=== PATIENT | male | born 1980 | race Caucasian/White ===

== ENCOUNTER 2019-07-25 00:39 | Emergency (ER) | payer SELFPAY ==
[2019-07-25] VITALS (7 sets, daily range): BP systolic 161–169; BP diastolic 10–81; PULSE 68–78; RESP 15–20; TEMP 36.6; O2SAT 96–98; BMI 49.1
--- NOTE | 2019-07-25 00:51 | XRR_ITS ---
PROCEDURE INFORMATION: Exam: XR Chest, 1 View Exam date and time: 07/25/2019 1:47 AM Age: 38 years old Clinical indication: Dyspnea; Additional info: SOB TECHNIQUE: Imaging protocol: XR of the chest Views: 1 view. COMPARISON: No relevant prior studies available. FINDINGS: Lungs: Unremarkable. No consolidation. Pleural space: Unremarkable. No pleural effusion. No pneumothorax. Heart/Mediastinum: Unremarkable. No cardiomegaly. Bones/joints: Unremarkable. XR/XR chest 1V portable [id number] IMPRESSION: No acute findings.
--- NOTE | 2019-07-25 00:51 | ECG_ITS ---
Measurements Intervals [place] Rate: 68 P: 36 RI: 170 QRS: -8 QRSD: 125 T: 40 QT: 390 QTc: 417 SINUS RHYTHM MODERATE INTRAVENTRICULAR CONDUCTION DELAY [110+ ms QRS DURATION] No previous ECG available for comparison Electronically Signed On 07-25-2019 8:25:35 CDT by Yudith Pina M.D. [id number]
--- NOTE | 2019-07-25 00:52 | W.ED.GENADLT ---
Documented by User: PAVEL Weeks 07/25/19 00:57 HPI - General Adult General: Chief complaint: Chest Pain Stated complaint: chest/abd pains/SOB Time Seen by Provider: 07/25/19 00:48 History of Present Illness: HPI narrative: Patient states that about 11:00 tonight he had an episode of pain is upper abdomen radiating to his left chest said he felt like he is holding his left arm up in the air went over to his left shoulder lasted from 30 to 45 minutes he said he broke out in cold sweat did have some shortness of breath that time. I said he is felt fine for the last hours so got right up here from [place] and he feels fine right now. Patient has history of hypertension gout and high cholesterol. MD complaint: Chest pain Onset (ago): hour(s) Location: chest Severity: mild and similar to prior episodes (Has had gas in the past that felt the same) Quality: stabbing and sharp Pain Consistency: now resolved Relieving factors: none Exacerbating factors: none Associated symptoms: Reports chest pain, diaphoresis, dyspnea and short of breath; Deny cough, headache(s), rash, palpitations or vomiting Review of Systems Const: Reports: diaphoresis Eyes: Denies: change in vision or blurry vision ENMT: Denies: throat pain or nasal congestion Card: Reports: chest pain; Denies: palpitations Resp: Reports: shortness of breath; Denies: productive cough or non-productive cough GI: Denies: vomiting : Denies: difficulty urinating Musc: Denies: extremity pain Skin/Breast: Denies: rash Neuro: Denies: headache Psych: Denies: anxiety or depression Tristan/Lymph: Denies: easy bruising PFSH ED PFSH: Social History Smoking and tobacco status: never smoked Physical Exam Const: COMMON NORMALS: no apparent distress, average body habitus and oriented x3 HENMT: COMMON NORMALS: normocephalic HEAD & SCALP: normal to inspection and normocephalic FACE & SINUS: normal facial exam Eye: COMMON NORMALS: conjunctivae normal GENERAL EYE: normal appearance of both eyes CONJUNCTIVA: Yes conjunctivae normal Neck/C-Spine: COMMON NORMALS: no JVD Chest: COMMONS NORMALS: inspection of chest normal Resp: COMMON NORMALS: normal respiratory effort and clear to auscultation bilaterally AUSCULTATION: clear to auscultation bilaterally Cardio: COMMON NORMALS: no JVD, regular rate and regular rhythm RATE: regular rate RHYTHM: regular rhythm GI: COMMON NORMALS: normal to inspection, nondistended, normoactive bowel sounds Extremity: COMMON NORMALS: normal to inspection and full ROM Neuro: COMMON NORMALS: oriented x3 Course Vital Signs: Vital signs: Vital Signs Temperature 97.8 F 07/25/19 00:51 Pulse Rate 73 07/25/19 03:28 Respiratory Rate 20 H 07/25/19 03:28 Blood Pressure 161/81 07/25/19 02:30 Pulse Oximetry 97 07/25/19 03:28 [facility] - General Adult Lab Data: Labs: Lab Results 07/25/19 07/25/19 07/25/19 Range/Units 00:58 00:58 00:58 WBC 13.2 H (4.0-10.0) 10^3/ uL RBC 5.30 (4.1-5.3) 10^6/u L Hgb 15.2 (11.7-16.6) g/dL Hct 48.0 (42.0-52.0) % MCV 90.6 (80-94) fL MCH 28.7 (28.0-34.0) pg MCHC 31.7 (30.0-36.0) g/dL RDW 12.6 (12.1-15.1) % Plt Count 278 (130-400) 10^3/c mm MPV 11.2 H (7.4-10.4) fL Neut % (Auto) 76.5 % Lymph % (Auto) 13.3 % [place] % (Auto) 8.7 % Eos % (Auto) 0.8 % Baso % (Auto) 0.4 % Neut # (Auto) 10.1 H (1.8-7.7) 10^3/u L Lymph # (Auto) 1.8 (0.8-4.8) 10^3/u L [place] # (Auto) 1.2 H (0.2-0.9) 10^3/u L Eos # (Auto) 0.1 (0.0-0.8) 10^3/u L Baso # (Auto) 0.1 (0.0-0.1) 10^3/u L Nucleated RBC % (a uto) 0 % Nucleated RBCs # 0.0 /100WBC PT (10.5-13.3) SECO NDS INR (0.8-1.2) Sodium 139 (136-145) mmol/L Potassium 4.1 (3.5-5.1) mmol/L Chloride 98 (98-107) mmol/L Carbon Dioxide 28 (22-29) mmol/L Anion Gap 17.1 (5-19) BUN 12 (6-20) mg/dL Creatinine 0.9 (0.7-1.2) mg/dL GFR Calculation 95.0 (90-130) mL/min Glucose 148 H (65-115) mg/dL Calculated Osmolal ity 287 (285-295) mOsm/k g Calcium 9.9 (8.5-10.5) mg/dL Total Bilirubin 0.7 (0.15-1.2) mg/dL AST 105 H (0-40) U/L ALT 70 H (0-41) U/L Alkaline Phosphata se 108 (40-130) IU/L Troponin T Baselin e 7 (0-15) ng/mL Troponin T 120 Min [place] (0-15) ng/mL Delta Troponin T (0-10) ABS# Total Protein 6.9 (6.6-8.7) g/dL Albumin 4.4 (3.5-5.2) g/dL Globulin 2.5 (1.3-4.6) g/dL Hepatitis A IgM Ab (Nonreactive) Hep Bs Antigen (Nonreactive) Hep B Core IgM Ab (Nonreactive) Hepatitis C Antibo dy (Nonreactive) 07/25/19 07/25/19 07/25/19 Range/Units 00:58 00:58 02:48 WBC (4.0-10.0) 10^3/ uL RBC (4.1-5.3) 10^6/u L Hgb (11.7-16.6) g/dL Hct (42.0-52.0) % MCV (80-94) fL MCH (28.0-34.0) pg MCHC (30.0-36.0) g/dL RDW (12.1-15.1) % Plt Count (130-400) 10^3/c mm MPV (7.4-10.4) fL Neut % (Auto) % Lymph % (Auto) % [place] % (Auto) % Eos % (Auto) % Baso % (Auto) % Neut # (Auto) (1.8-7.7) 10^3/u L Lymph # (Auto) (0.8-4.8) 10^3/u L [place] # (Auto) (0.2-0.9) 10^3/u L Eos # (Auto) (0.0-0.8) 10^3/u L Baso # (Auto) (0.0-0.1) 10^3/u L Nucleated RBC % (a uto) % Nucleated RBCs # /100WBC PT 13.60 H (10.5-13.3) SECO NDS INR 1.01 (0.8-1.2) Sodium (136-145) mmol/L Potassium (3.5-5.1) mmol/L Chloride (98-107) mmol/L Carbon Dioxide (22-29) mmol/L Anion Gap (5-19) BUN (6-20) mg/dL Creatinine (0.7-1.2) mg/dL GFR Calculation (90-130) mL/min Glucose (65-115) mg/dL Calculated Osmolal ity (285-295) mOsm/k g Calcium (8.5-10.5) mg/dL Total Bilirubin (0.15-1.2) mg/dL AST (0-40) U/L ALT (0-41) U/L Alkaline Phosphata se (40-130) IU/L Troponin T Baselin e (0-15) ng/mL Troponin T 120 Min [place] 6.00 (0-15) ng/mL Delta Troponin T -1.00 L (0-10) ABS# Total Protein (6.6-8.7) g/dL Albumin (3.5-5.2) g/dL Globulin (1.3-4.6) g/dL Hepatitis A IgM Ab Non-reactive (Nonreactive) Hep Bs Antigen Non-reactive (Nonreactive) Hep B Core IgM Ab Non-reactive (Nonreactive) Hepatitis C Antibo dy Non-reactive (Nonreactive) EKG Data^: EKG 1: EKG interpretation date: 03/29/20 EKG interpretation time: 00:56 Interpretation: Normal sinus rhythm ventricular rate is 60 bpm OH interval 170 ms QRS duration 125 ms Computer generated interpretation: Chest X-Ray 07/25/19 00:51 IMPRESSION: No acute findings. Gallbladder Ultrasound 07/25/19 02:02 IMPRESSION: Cholelithiasis with gallbladder wall thickening, possible cholecystitis. Negative sonographic Wilkins sign. Discharge Plan Discharge Patient Disposition: Home, Self-Care Clinical Impression: Biliary colic Chest pain Qualifiers: Chest pain type: unspecified Qualified Code(s): R07.9 - Chest pain, unspecified Condition: Stable Discharge Orders: Discharge Order (Routine); Ordered 07/25/19 Ordered By: Elpidio Abebe Referrals: Scott Lindo DO [Family Provider] - 4-7 days Discharge Diet: Advance as tolerated Discharge Activity: Increase activity as tolerated Patient Instructions: Chest Pain (ED), Biliary Colic (ED) Activity Restrictions/Additional Instructions: Return for return of chest or abdominal pain, fever greater than 100, vomiting liquids or medications, shortness of breath, other concerning symptoms. Avoiding fatty or fried foods may help. Discharge Date/Time: 07/25/19 03:22 Coding Level of Care Code ED Delicatessen Clerk for Chg Fwd Exam Comprehensive Documented by User: Elpidio Abebe DO 07/25/19 03:38 HPI - General Adult General: Chief complaint: Chest Pain Stated complaint: chest/abd pains/SOB Time Seen by Provider: 07/25/19 00:48 PFSH ED PFSH: Social History Smoking and tobacco status: never smoked Course Vital Signs: Vital signs: Vital Signs Temperature 97.8 F 07/25/19 00:51 Pulse Rate 73 07/25/19 03:28 Respiratory Rate 20 H 07/25/19 03:28 Blood Pressure 161/81 07/25/19 02:30 Pulse Oximetry 97 07/25/19 03:28 MDM - General Adult MDM Narrative: Medical decision making narrative: 38-year-old male checked out to me by PAVEL Vásquez. His complaint was chest pain that lasted about 45 minutes following eating, that is now resolved. His EKG did not show acute ST changes. His troponin did not change at 2 hours. His gallbladder ultrasound shows 2 large stones in the gallbladder. No ductal dilatation. His wall, is within normal range, but a higher normal. His pain is consistent with biliary colic. With resolution of his pain, and his nontender status now, he will be allowed home. Lab Data: Labs: Lab Results 07/25/19 07/25/19 07/25/19 Range/Units 00:58 00:58 00:58 WBC 13.2 H (4.0-10.0) 10^3/ uL RBC 5.30 (4.1-5.3) 10^6/u L Hgb 15.2 (11.7-16.6) g/dL Hct 48.0 (42.0-52.0) % MCV 90.6 (80-94) fL MCH 28.7 (28.0-34.0) pg MCHC 31.7 (30.0-36.0) g/dL RDW 12.6 (12.1-15.1) % Plt Count 278 (130-400) 10^3/c mm MPV 11.2 H (7.4-10.4) fL Neut % (Auto) 76.5 % Lymph % (Auto) 13.3 % [place] % (Auto) 8.7 % Eos % (Auto) 0.8 % Baso % (Auto) 0.4 % Neut # (Auto) 10.1 H (1.8-7.7) 10^3/u L Lymph # (Auto) 1.8 (0.8-4.8) 10^3/u L [place] # (Auto) 1.2 H (0.2-0.9) 10^3/u L Eos # (Auto) 0.1 (0.0-0.8) 10^3/u L Baso # (Auto) 0.1 (0.0-0.1) 10^3/u L Nucleated RBC % (a uto) 0 % Nucleated RBCs # 0.0 /100WBC PT (10.5-13.3) SECO NDS INR (0.8-1.2) Sodium 139 (136-145) mmol/L Potassium 4.1 (3.5-5.1) mmol/L Chloride 98 (98-107) mmol/L Carbon Dioxide 28 (22-29) mmol/L Anion Gap 17.1 (5-19) BUN 12 (6-20) mg/dL Creatinine 0.9 (0.7-1.2) mg/dL GFR Calculation 95.0 (90-130) mL/min Glucose 148 H (65-115) mg/dL Calculated Osmolal ity 287 (285-295) mOsm/k g Calcium 9.9 (8.5-10.5) mg/dL Total Bilirubin 0.7 (0.15-1.2) mg/dL AST 105 H (0-40) U/L ALT 70 H (0-41) U/L Alkaline Phosphata se 108 (40-130) IU/L Troponin T Baselin e 7 (0-15) ng/mL Troponin T 120 Min [place] (0-15) ng/mL Delta Troponin T (0-10) ABS# Total Protein 6.9 (6.6-8.7) g/dL Albumin 4.4 (3.5-5.2) g/dL Globulin 2.5 (1.3-4.6) g/dL Hepatitis A IgM Ab (Nonreactive) Hep Bs Antigen (Nonreactive) Hep B Core IgM Ab (Nonreactive) Hepatitis C Antibo dy (Nonreactive) 07/25/19 07/25/19 07/25/19 Range/Units 00:58 00:58 02:48 WBC (4.0-10.0) 10^3/ uL RBC (4.1-5.3) 10^6/u L Hgb (11.7-16.6) g/dL Hct (42.0-52.0) % MCV (80-94) fL MCH (28.0-34.0) pg MCHC (30.0-36.0) g/dL RDW (12.1-15.1) % Plt Count (130-400) 10^3/c mm MPV (7.4-10.4) fL Neut % (Auto) % Lymph % (Auto) % [place] % (Auto) % Eos % (Auto) % Baso % (Auto) % Neut # (Auto) (1.8-7.7) 10^3/u L Lymph # (Auto) (0.8-4.8) 10^3/u L [place] # (Auto) (0.2-0.9) 10^3/u L Eos # (Auto) (0.0-0.8) 10^3/u L Baso # (Auto) (0.0-0.1) 10^3/u L Nucleated RBC % (a uto) % Nucleated RBCs # /100WBC PT 13.60 H (10.5-13.3) SECO NDS INR 1.01 (0.8-1.2) Sodium (136-145) mmol/L Potassium (3.5-5.1) mmol/L Chloride (98-107) mmol/L Carbon Dioxide (22-29) mmol/L Anion Gap (5-19) BUN (6-20) mg/dL Creatinine (0.7-1.2) mg/dL GFR Calculation (90-130) mL/min Glucose (65-115) mg/dL Calculated Osmolal ity (285-295) mOsm/k g Calcium (8.5-10.5) mg/dL Total Bilirubin (0.15-1.2) mg/dL AST (0-40) U/L ALT (0-41) U/L Alkaline Phosphata se (40-130) IU/L Troponin T Baselin e (0-15) ng/mL Troponin T 120 Min [place] 6.00 (0-15) ng/mL Delta Troponin T -1.00 L (0-10) ABS# Total Protein (6.6-8.7) g/dL Albumin (3.5-5.2) g/dL Globulin (1.3-4.6) g/dL Hepatitis A IgM Ab Non-reactive (Nonreactive) Hep Bs Antigen Non-reactive (Nonreactive) Hep B Core IgM Ab Non-reactive (Nonreactive) Hepatitis C Antibo dy Non-reactive (Nonreactive) EKG Data^: EKG 1: Computer generated interpretation: Chest X-Ray 07/25/19 00:51 IMPRESSION: No acute findings. Gallbladder Ultrasound 07/25/19 02:02
[2019-07-25 01:23] LABS: Basophils # 0.1 10^3/uL (0.0-0.1); Basophils % 0.4 %; Eosinophils # 0.1 10^3/uL (0.0-0.8); Eosinophils % 0.8 %; Hemoglobin 15.2 g/dL (11.7-16.6); Lymphocytes # 1.8 10^3/uL (0.8-4.8); Lymphocytes % 13.3 %; Mean Corpuscular HGB Conc 31.7 g/dL (30.0-36.0); Mean Corpuscular Hemoglobin 28.7 pg (28.0-34.0); Mean Corpuscular Volume 90.6 fL (80-94); Mean Platelet Volume 11.2 fL (7.4-10.4); Monocytes # 1.2 10^3/uL (0.2-0.9); Monocytes % 8.7 %; Neutrophils # 10.1 10^3/uL (1.8-7.7); Neutrophils % 76.5 %; Nucleated Red Blood Cells % 0 %; Platelet Count 278 10^3/cmm (130-400); Red Cell Distribution Width 12.6 % (12.1-15.1); White Blood Count 13.2 10^3/uL (4.0-10.0)
[2019-07-25 01:36] LABS: INR 1.01 (0.8-1.2)
[2019-07-25 01:45] LABS: Alanine Aminotransferase 70 U/L (0-41); Albumin Level 4.4 g/dL (3.5-5.2); Alkaline Phosphatase 108 IU/L (40-130); Anion Gap 17.1 (5-19); Aspartate Amino Transferase 105 U/L (0-40); Blood Urea Nitrogen 12 mg/dL (6-20); Calcium 9.9 mg/dL (8.5-10.5); Carbon Dioxide 28 mmol/L (22-29); Chloride 98 mmol/L (98-107); Globulin 2.5 g/dL (1.3-4.6); Glucose 148 mg/dL (65-115); Osmolality Calculated 287 mOsm/kg (285-295); Potassium 4.1 mmol/L (3.5-5.1); Sodium 139 mmol/L (136-145); Total Bilirubin 0.7 mg/dL (0.15-1.2); Total Protein 6.9 g/dL (6.6-8.7)
[2019-07-25 02:00] LABS: Troponin(5th) Baseline 7 ng/mL (0-15)
--- NOTE | 2019-07-25 02:02 | USR_ITS ---
PROCEDURE INFORMATION: Exam: US Abdomen Limited, Right Upper Quadrant Exam date and time: 07/25/2019 2:52 AM Age: 38 years old Clinical indication: Abdominal pain; Acute; Additional info: Ruq pain TECHNIQUE: Imaging protocol: Real-time ultrasound of the abdomen with image documentation. Examination was focused on the right upper quadrant. COMPARISON: CT abdomen pelvis w con* [id number] 2019-03-30 08:03 FINDINGS: Liver: Hepatic steatosis. Gallbladder: Cholelithiasis with gallbladder wall thickening measuring 6 mm. Common bile duct: Common biliary duct measures 5 mm. Pancreas: Visualized pancreas is unremarkable. Right kidney: Normal. No mass. No hydronephrosis. US/US gall bladder [id number] IMPRESSION: Cholelithiasis with gallbladder wall thickening, possible cholecystitis. Negative sonographic Wilkins sign.
[2019-07-25 02:29] LABS: Hepatitis A Antibody IgM. Non-Reactive (Nonreactive); Hepatitis B Core IgM Non-Reactive (Nonreactive); Hepatitis B Surface Antigen. Non-Reactive (Nonreactive); Hepatitis C Virus Antibody Non-Reactive (Nonreactive)
== END 2019-07-25 03:22 | disposition home or self-care (01) ==
PROVIDERS: Emergency Provider Nurse Practitioner Family; Family Provider Electrodiagnostic Medicine
DX: K80.70 Calculus of gallbladder and bile duct without cholecystitis without obstruction (principal); R07.9 Chest pain, unspecified; I10 Essential (primary) hypertension
CPT/HCPCS: 12345; 71045; 76705; 80053; 80074; 84484; 85025; 85610; 93005; 99282; 99283

== ENCOUNTER 2022-08-23 21:03 | Observation (INO) | payer MEDICAID, SELFPAY ==
--- NOTE | 2022-08-23 21:09 | XRR_ITS ---
PROCEDURE INFORMATION: Exam: XR Chest Exam date and time: 08/23/2022 9:47 PM Age: 41 years old Clinical indication: Pain; Other: Upper abd; Additional info: Abd pain TECHNIQUE: Imaging protocol: Radiologic exam of the chest. Views: 1 view. COMPARISON: CR XR chest 1V portable [id number] 07/25/2019 1:36 AM FINDINGS: Lungs: Unremarkable. No consolidation. Pleural spaces: Unremarkable. No pleural effusion. No pneumothorax. Heart/Mediastinum: Unremarkable. No cardiomegaly. Bones/joints: Unremarkable. XR/XR chest 1V portable [id number] IMPRESSION: No acute findings. Stable appearance of the chest compared with 07/25/2019.
--- NOTE | 2022-08-23 21:09 | USR_ITS ---
PROCEDURE INFORMATION: Exam: US Abdomen, Limited; Right Upper Quadrant Exam date and time: 08/23/2022 9:21 PM Age: 41 years old Clinical indication: Abdominal pain; Acute; Additional info: Ruq pain TECHNIQUE: Imaging protocol: Real time ultrasound of the abdomen with image documentation. Limited exam focused on the right upper quadrant. COMPARISON: US gall bladder [id number] 07/25/2019 2:47 AM FINDINGS: Liver: There is diffuse hyperechogenicity of the hepatic parenchyma compatible with fatty infiltration. The liver is prominent measuring approximately 23.7 cm craniocaudal dimension. Gallbladder: Hyperechoic foci and intermediate echogenicity is seen intraluminally within the gallbladder compatible gallstones and gallbladder sludge. There is gallbladder thickening measuring 5.2 mm. A positive sonographic Wilkins sign is elicited. These findings suggest gallstone cholecystitis. Biliary ducts: Normal. No stones. No dilation. Pancreas: Visualized pancreas is unremarkable. Right kidney: Normal. No mass. No hydronephrosis. US/US gall bladder [id number] IMPRESSION: 1. Gallstones, gallbladder sludge, gallbladder wall thickening and positive sonographic Wilkins sign suggests gallstone cholecystitis. 2. Hepatomegaly and fatty infiltration of the liver.
[2022-08-23 21:11] VITALS: BP 182/97; PULSE 57; RESP 16; TEMP 36.8; O2SAT 97; BMI 54.1
--- NOTE | 2022-08-23 21:12 | ED_ITS ---
HPI - Abdominal Pain General: Chief Complaint: Abdominal Pain Stated Complaint: ABD PAIN Time Seen by Provider: 08/23/22 21:03 Source: patient and EMS Mode of arrival: EMS Limitations: no limitations History of Present Illness: 41-year-old male who states that he started having some epigastric pain at 5 PM. States pain is been a sharp pain that is currently a 6 out of 10 he states it is much worse with palpation has had some nausea denies any vomiting he has had issues with his gallbladder past no abdominal surgeries states she did have some radiation into his chest denies any chest pain currently. No fevers. Associated Symptoms: Reports nausea; Denies chills, diarrhea, dysuria, fever(s) and vomiting Review of Systems Const: Denies: fever(s), chills, body aches or change in appetite Eyes: Denies: eye discomfort ENMT: Denies: throat pain or dental pain Card: Reports: chest pain Resp: Denies: dyspnea GI: Reports: abdominal pain and nausea; Denies: vomiting or diarrhea : Denies: dysuria Musc: Denies: neck pain or back pain Skin/Breast: Denies: rash Neuro: Denies: headache(s) PFS ED PFSH: Medical History (Updated 08/23/22 @ 23:08 by Black Sprague MD) No pertinent past medical history Social History Smoking and tobacco status: never smoked Physical Exam Const: COMMON NORMALS: no acute distress, patient oriented x3 and healthy appearing HENMT: COMMON NORMALS: normocephalic and atraumatic HEAD & SCALP: normocephalic and atraumatic Eye: COMMON NORMALS: Equal, round and reactive pupils present and EOMs intact bilaterally PUPIL: Yes Equal, round and reactive pupils present Neck/C-Spine: COMMON NORMALS: full ROM and supple Chest: COMMONS NORMALS: normal inspection of the chest and normal palpation of entire chest wall Resp: COMMON NORMALS: normal respiratory effort, No retractions, No use of accessory muscles and clear to auscultation bilaterally AUSCULTATION: clear to auscultation bilaterally Cardio: COMMON NORMALS: regular rate, regular rhythm and No murmurs present (Cardio) RATE: regular rate RHYTHM: regular rhythm GI: COMMON NORMALS: Normal to inspection, nondistended, normoactive bowel sounds present, Soft to palpation and no masses PALPATION: Yes Soft to palpation OTHER: epigastric tenderness Extremity: COMMON NORMALS: normal to inspection and full ROM Neuro: COMMON NORMALS: patient oriented x3, moves all extremities and no focal motor deficits Psych: COMMON NORMALS: mental status grossly normal, Normal thought process present and cooperative THOUGHT PROCESS: Normal thought process present Skin: COMMON NORMALS: no rashes or lesions noted and no wounds GENERAL SKIN EXAM: no rashes or lesions noted Course Vital Signs: Vital signs: Vital Signs Temperature 98.2 F 08/23/22 21:11 Pulse Rate 57 L 08/23/22 21:11 Respiratory Rate 18 08/23/22 21:45 Blood Pressure 182/97 08/23/22 21:11 Pulse Oximetry 97 08/23/22 21:45 Oxygen Delivery Me thod Room Air 08/23/22 21:11 MDM - Abdominal Pain Medical Decision Making Patient presents here with abdominal pain ultrasound does show cholecystitis his pain has improved here we will start him on antibiotic spoke to surgeon and will admit at this time. Lab Data 08/23/22 21:42 08/23/22 22:30 Labs/Radiology: Radiology Impressions Chest X-Ray 08/23/22 21:09 IMPRESSION: No acute findings. Stable appearance of the chest compared with 07/25/2019. Gallbladder Ultrasound 08/23/22 21:09 IMPRESSION: 1. Gallstones, gallbladder sludge, gallbladder wall thickening and positive sonographic Wilkins sign suggests gallstone cholecystitis. 2. Hepatomegaly and fatty infiltration of the liver. Laboratory Results WBC 12.0 10^3/uL (4.0-10.0) H 08/23/22 21:42 RBC 4.74 10^6/uL (4.1-5.3) 08/23/22 21:42 Hgb 13.6 g/dL (11.7-16.6) 08/23/22 21:42 Hct 42.8 % (42.0-52.0) 08/23/22 21:42 MCV 90.3 fl (80-94) 08/23/22 21:42 MCH 28.7 pg (28.0-34.0) 08/23/22 21:42 MCHC 31.8 g/dL (30.0-36.0) 08/23/22 21:42 RDW 12.3 % (12.1-15.1) 08/23/22 21:42 Plt Count 245 10^3/cmm (130-400) 08/23/22 21:42 MPV 12.1 fL (7.4-10.4) H 08/23/22 21:42 Neut % (Auto) 88.6 % 08/23/22 21:42 Lymph % (Auto) 6.9 % 08/23/22 21:42 Gregory % (Auto) 3.7 % 08/23/22 21:42 Eos % (Auto) 0.1 % 08/23/22 21:42 Baso % (Auto) 0.4 % 08/23/22 21:42 Neut # (Auto) 10.64 10^3/uL (1.8-7.7) H 08/23/22 21:42 Lymph # (Auto) 0.8 10^3/uL (0.8-4.8) 08/23/22 21:42 Gregory # (Auto) 0.5 10^3/uL (0.2-0.9) 08/23/22 21:42 Eos # (Auto) 0.0 10^3/uL (0.0-0.8) 08/23/22 21:42 Baso # (Auto) 0.1 10^3/uL (0.0-0.1) 08/23/22 21:42 Nucleated RBC % (auto) 0 % 08/23/22 21:42 Nucleated RBCs # 0.0 /100WBC 08/23/22 21:42 Sodium 139 mmol/L (136-145) 08/23/22 22:30 Potassium 3.2 mmol/L (3.5-5.1) L 08/23/22 22:30 Chloride 100 mmol/L (98-107) 08/23/22 22:30 Carbon Dioxide 24 mmol/L (22-29) 08/23/22 22:30 Anion Gap 18.2 (5-19) 08/23/22 22:30 BUN 6 mg/dL (6-20) 08/23/22 22:30 Creatinine 0.7 mg/dL (0.7-1.2) 08/23/22 22:30 GFR Calculation 124.9 mL/min (90-130) 08/23/22 22:30 Glucose 181 mg/dL (65-115) H 08/23/22 22:30 Calculated Osmolality 290 mOsm/kg (285-295) 08/23/22 22:30 Calcium 9.4 mg/dL (8.5-10.5) 08/23/22 22:30 Total Bilirubin 1.1 mg/dL (0.15-1.2) 08/23/22 22:30 AST 177 U/L (0-40) H 08/23/22 22:30 ALT 114 U/L (0-41) H 08/23/22 22:30 Alkaline Phosphatase 142 U/L (40-130) H 08/23/22 22:30 Total Protein 7.1 g/dL (6.6-8.7) 08/23/22 22: Albumin 3.8 g/dL (3.5-5.2) 08/23/22 22: Globulin 3.3 g/dL (1.3-4.6) 08/23/22: Lipase 26 U/L (13-60) 08/23/22 22:30 Discharge Plan Discharge Patient Disposition: Admitted As Inpatient Clinical Impression: Cholecystitis Condition: Stable Coding Level of Care Code ED Director Patient Financial Services for Rizwan Jules
--- NOTE | 2022-08-23 21:18 | ECG_ITS ---
[facility] Test Date: 2022-08-23 Pat Name: Louis Reeder Department: Room: Gender: Male [employer]ing [employer]: : 1980 Requested By: Black Sprague Order Number: [id number] Ruth MD: Esmer Mejía M.D. Measurements Intervals [place] Rate: 55 P: 41 AK: 173 QRS: -29 QRSD: 126 T: 24 QT: 425 QTc: 407 Interpretive Statements SINUS BRADYCARDIA BORDERLINE LEFT AXIS DEVIATION [QRS AXIS < -20] MODERATE INTRAVENTRICULAR CONDUCTION DELAY [110+ ms QRS DURATION] Compared to ECG 07/25/2019 00:59:44 Sinus rhythm no longer present Electronically Signed On 08-24-2022 16:36:53 CDT by Esmer Mejía M.D. [id number]
[2022-08-23] MEDS: ondansetron 2 mg/ML SDV 2 mL 4 MG IVP (21:44)
[2022-08-23 21:45] VITALS: RESP 18; O2SAT 97
[2022-08-23] MEDS: morphine 4 mg/mL SDV 1 mL IVP (21:45)
[2022-08-23 22:01] LABS: Basophils # 0.1 10^3/uL (0.0-0.1); Basophils % 0.4 %; Eosinophils % 0.1 %; Hematocrit 42.8 % (42.0-52.0); Hemoglobin 13.6 g/dL (11.7-16.6); Lymphocytes # 0.8 10^3/uL (0.8-4.8); Lymphocytes % 6.9 %; Mean Corpuscular HGB Conc 31.8 g/dL (30.0-36.0); Mean Corpuscular Hemoglobin 28.7 pg (28.0-34.0); Mean Corpuscular Volume 90.3 fl (80-94); Mean Platelet Volume 12.1 fL (7.4-10.4); Monocytes # 0.5 10^3/uL (0.2-0.9); Monocytes % 3.7 %; Neutrophils # 10.64 10^3/uL (1.8-7.7); Neutrophils % 88.6 %; Nucleated Red Blood Cells % 0 %; Platelet Count 245 10^3/cmm (130-400); Red Blood Count 4.74 10^6/uL (4.1-5.3); Red Cell Distribution Width 12.3 % (12.1-15.1)
[2022-08-23] MEDS: levofloxacin-dextrose 5 % 750 MG/150 ML PREMIX 100 MG IV (22:31)
[2022-08-23 22:53] LABS: Alanine Aminotransferase 114 U/L (0-41); Albumin Level 3.8 g/dL (3.5-5.2); Alkaline Phosphatase 142 U/L (40-130); Anion Gap 18.2 (5-19); Aspartate Amino Transferase 177 U/L (0-40); Blood Urea Nitrogen 6 mg/dL (6-20); Calcium 9.4 mg/dL (8.5-10.5); Carbon Dioxide 24 mmol/L (22-29); Chloride 100 mmol/L (98-107); Globulin 3.3 g/dL (1.3-4.6); Glomerular Filtration Rate 124.9 mL/min (90-130); Glucose 181 mg/dL (65-115); Lipase 26 U/L (13-60); Osmolality Calculated 290 mOsm/kg (285-295); Potassium 3.2 mmol/L (3.5-5.1); Sodium 139 mmol/L (136-145); Total Bilirubin 1.1 mg/dL (0.15-1.2); Total Protein 7.1 g/dL (6.6-8.7)
[2022-08-23 23:16] VITALS: BP 166/83; PULSE 72; RESP 15; O2SAT 95
[2022-08-24] VITALS (33 sets, daily range): BP systolic 146–199; BP diastolic 82–117; PULSE 58–94; RESP 12–22; TEMP 36.4–37.1; O2SAT 91–97
[2022-08-24] MEDS: sodium chloride 0.9% 1,000 ML 100 ML IV (00:05)
--- NOTE | 2022-08-24 08:42 | P.HP_ITS ---
Providers/Chief Complaint Admitting Physician: Chavez Frankel MD Chief Complaint: ABD PAIN History of Present Illness Louis Reeder is a 41 year old male presents the emergency room with a several hour history of abdominal pain. The patient had some nausea without vomiting. The patient underwent an ultrasound in the emergency room which was consistent with acute cholecystitis. Patient also had cholelithiasis. The pat eder had a previous episode approximately 2 weeks earlier which woke him up in the middle of the night. The pain was in the right upper quadrant. The patient stated the pain lasted about 45 minutes before he started to feel better. The patient has a diet that consists of fatty foods. Past medical history is consistent with hypertension and gout and morbid obesity Review of Systems General: Reports: 10 or more systems reviewed and unremarkable except in HPI and below Medications/Allergies Allergies Allergy/AdvReac Type Severity Reaction Status Date / Time Penicillins Allergy ADR-Itching Verified 08/23/22 21:16 PFSH Acute PFSH: Medical History No pertinent past medical history Social History Smoking and tobacco status: never smoked Vitals/I&O/Wt Last Vital Signs Temp 98.0 F 08/24/22 04:00 Pulse 58 L 08/24/22 04:00 Resp 16 08/24/22 04:00 BP 159/95 08/24/22 04:00 Pulse Ox 97 08/24/22 04:00 O2 Del Method Room Air 08/24/22 04:00 08/23/22 08/24/22 08/24/22 22:59 06:59 14:59 Intake Total 150 / 150 Balance 150 / 150 Weight last 48 hrs Weight 410 lb Physical Exam Narrative: Generally: No acute distress HEENT is normocephalic atraumatic Neck: Free range of motion and nontender. The patient has no thyromegaly. Lungs: Clear to auscultation and percussion Heart: Is regular rate and rhythm without murmurs. There is no S3 or S4. There is no rubs clicks or JVD noted. Abdomen: Morbidly obese, soft, right upper quadrant tenderness without rebound. There is no masses that I can appreciate. There is no hepatosplenomegaly. There is no costovertebral angle tenderness. There are no hernias that I can appreciate. Extremities: There is no obvious deformities or point tenderness suggestive of a fracture. The patient has good capillary refill in both his hands and feet. There is no clubbing cyanosis or edema. Neurologic: The patient is awake, alert, oriented x3. The patient moves all 4 extremities without difficulty. The patient sensations intact to light touch throughout. Data 08/23/22 21:42 08/23/22 22:30 Attestation for Other Data: I personally reviewed and interpreted the following: (I have reviewed all the patient's labs and ultrasound from this hospitalization) A&P Assessment and plan (1) Cholecystitis: This patient has acute cholecystitis. The patient received a single dose of levofloxacin last night because the patient is allergic to penicillin. We will switch this to ertapenem. The risk and benefits of laparoscopic cholecystectomy been explained to the patient. The patient seems to understand these risk and benefits would like to proceed. (2) Hypertension: will give clonidine PO. Attestations Medical Necessity Statement*: requires surgical intervention Coding Level of Care Code 67634 Diagnoses Cholecystitis K81.9 Hypertension I10
[2022-08-24] MEDS: cloNIDine 0.1 mg Tablet PO ×2 (08:49→21:45)
[2022-08-24] MEDS: D5-NS 0.45% + KCL 20 mEq 20 MEQ/1,000 ML BAG 125 MEQ IV (09:19)
[2022-08-24] MEDS: potassium chloride premix 100 ML 50 MEQ IV (09:25)
[2022-08-24] MEDS: sodium chloride 0.9% 1,000 ML 30 ML IV (11:07)
--- NOTE | 2022-08-24 12:34 | ANES.PREANE2 ---
Pre-Anesthetic Assessment Height/Weight: Height 1.85 m Weight 185.973 kg Temp Pulse Resp BP Pulse Ox O2 Del Method 98.8 F 78 16 177/111 95 Room Air 08/24/22 11:03 08/24/22 11:03 08/24/22 11:03 08/24/22 11:03 08/24/22 11:03 08/24/22 11:03 Preop Diagnosis: acute cholecystitis Operation Date: 08/24/22 11:35 Proposed Procedures p Laparoscopic Cholecystectomy(Not Applicable) - Chavez Frankel MD Familial anesthetic complications: none Was Beta Duncan taken within 24 hours: N/A Was Clonidine taken within 24 hours: N/A Last intake: Intake Last Liquid Date 08/23/22 Last Liquid Time 23:30 Last Solid Date 08/23/22 Last Solid Time 13:00 Social No alcohol and No tobacco Exam alert, oriented x 3, clear to auscultation bilaterally and regular rate & rhythm Airway Submandibular: within normal limits Cervical ROM: within normal limits Mallampati: Class I Dentition: chipped Comments: Comments: Multiple caries and chips CV/HEM Hypertension GI acute abdomen Metabolic Morbid Obesity Anesthetic Plan ASA status: 3 Anesthesia: General Medications/Allergies Allergies Allergy/AdvReac Type Severity Reaction Status Date / Time Penicillins Allergy ADR-Itching Verified 08/23/22 21:16 Current Medications Generic Name Dose Route Start Last Admin Trade Name Freq PRN Reason Stop Dose Admin Clonidine HCl 0.1 mg 08/24/22 08:27 08/24/22 08:49 Clonidine 0.1 Mg Tablet PO 0.1 mg Q4H PRN Administration SYSTOLIC BLOOD PRESSURE Potassium Chloride/Dextrose/Sod Cl 20 meq in 1,000 mls @ 125 mls/hr 08/24/22 08:30 08/24/22 09:19 D5-Ns 0.45% + Kcl 20 Meq IV 125 mls/hr .Q8H KAYA Administration Sodium Chloride 1,000 mls @ 30 mls/hr 08/24/22 11:00 08/24/22 11:07 Sodium Chloride 0.9% IV 08/25/22 10:59 30 mls/hr .Q24H KAYA Administration PFSH Anesthesia Medical History No pertinent past medical history Social History Smoking and tobacco status: never smoked Data Anesthesia 08/23/22 21:42 08/23/22 22:30 Short CBC 08/23/22 Range/Units 21:42 WBC 12.0 H (4.0-10.0) 10^3/uL Hgb 13.6 (11.7-16.6) g/dL Hct 42.8 (42.0-52.0) % MCV 90.3 (80-94) fl Plt Count 245 (130-400) 10^3/cmm Neut % (Auto) 88.6 % Neut # (Auto) 10.64 H (1.8-7.7) 10^3/uL BMP 08/23/22 08/23/22 21:42 22:30 Sodium Cancelled 139 Potassium Cancelled 3.2 L Chloride Cancelled 100 Carbon Dioxide Cancelled 24 BUN Cancelled 6 Creatinine Cancelled 0.7 Glucose Cancelled 181 H Calcium Cancelled 9.4 Liver Function 08/23/22 08/23/22 Range/Units 21:42 22:30 Total Bilirubin Cancelled 1.1 AST Cancelled 177 H ALT Cancelled 114 H Alkaline Phosphatase Cancelled 142 H Albumin Cancelled 3.8 Cardiac Studies: No Data to Display
--- NOTE | 2022-08-24 13:52 | P.OP_ITS ---
Operative Report Date of procedure: August 24, 2022 Pre-op diagnosis: acute cholecystitis Post-op diagnosis: same Procedure done: Laparoscopic cholecystectomy Specimens removed/disposition: Gallbladder Pathology: Gallbladder Surgeon: Chavez Frankel Anesthesia: General Estimated blood loss (mL): 25 Complications: None noted Findings: Thickened, inflamed edematous gallbladder. Cystic duct and cystic artery were clearly identified. Surgicel was left in the gallbladder fossa. Condition: stable Disposition: PACU Brief History: This is a 41-year-old morbidly obese male who presents with signs and symptoms of acute cholecystitis. Patient an ultrasound which was consistent with acute cholecystitis and cholelithiasis. The risk and benefits of laparoscopic cholecystectomy/open cholecystectomy were explained to the patient. The patient seemed understand the risk and benefits and wanted to proceed. Procedure: Procedure in detail: The patient was brought to the operating placed in supine position. After adequate general endotracheal anesthesia, the patient was prepped and draped in usual sterile fashion. Following this a timeout was performed. The patient's identifiers as well as the goals procedure were discussed. Everyone in the room agreed. This patient is morbidly obese but he is also a tall individual because of this I chose to go supraumbilical. A towel clip was placed along the midline just above the umbilicus and another towel clip was placed approximate 3 cm cephalad. An incision was made with a skin knife along the midline. Because of the patient's size I was unable to use the normal 12 mm trocars. I needed to use the extra long trocars. I did attempt to use the normal trocars and was unable to get into the abdomen. Once I got a longer trocars I was able to get into the abdomen the abdomen was insufflated to 15 mmHg. Then 3 standard subcostal ports were placed. One just below the xiphoid another and along the midclavicular line. This was a 5 mm port and then finally a 5 mm port along the anterior axillary line. These were all placed under direct vision. The patient was placed in reverse Trendelenburg and rolled with his left side down his right side up in order for the bowel to fall away from the gallbladder. The patient had multiple thick omental adhesions to the gallbladder. These were bluntly t aken off the gallbladder. This caused some bleeding. I ended up using the Bovie cautery to get the rest of the omentum off of the gallbladder. I had difficulty placing a grasper on the gallbladder because of this and it was not compressible. Because of this I used a needle to decompress the gallbladder. I aspirated approximately 40 to 50 cc worth of bile. This was dark green in color. This helped with the compressibility of the gallbladder somewhat but I still had difficulty keeping the grasper on the gallbladder. This was a theme throughout the case. Because of this I took a Bovie cautery and on the dome of the gallbladder I created a hole and then through this hole I placed the suction student services vice president and suctioned out the remaining bile. This made the gallbladder more pliable. Extensive adhesions were taken down and as I got to the infundibulum of the gallbladder I was still having difficulty to the gallbladder itself because of this I ended up getting a tenaculum this worked extremely well. Is able to dissect out the cystic duct. I get it in multiple different angles. Using a [place] as well as the suction student services vice president I was able to take the adhesions off the bottom of the gallbladder this delineated the cystic artery. Using the Bovie both on the medial and lateral aspect of the gallbladder I was able to get the lower portion of the gallbladder off of the gallbladder fossa this help create the critical view. Now using the larger 10 mm clips the cystic duct was clipped 2 clips more distal and 1 clip closer to the gallbladder. Scissors were then used to amputate the duct. The artery appeared to bifurcate. I inspected this carefully. Both of these tributaries did go directly into the gallbladder because of this they were both clipped and cut now was able to flip the gallbladder up and remove the gallbladder from the gallbladder fossa using the Bovie cautery. There was extensive inflammatory reaction and the gallbladder peeled out relatively easily. More anterior there was more adhesions and the Bovie cautery was used to Bovie this out the surrounding gallbladder fossa and the the gallbladder was free the gallbladder was now placed in an Endobag. I carefully inspected the liver. The Bovie cautery was used for hemostasis. Because there was a slight amount of oozing I placed some Surgicel in this area. The patient's gallbladder was extremely large. It was thickened. I had an enormous amount of difficulty trying to get the gallbladder out of the 12 mm port in the subxiphoid region because of this I extended this incision several centimeters and then used the Bovie cautery to extend the incision through the subcutaneous tissues and the fascia. Once I was able to open the fascia then I was able to pull the gallbladder out in the Endobag. The Endobag was handed off the field. The the remaining ports were removed. The patient's abdomen is allowed to deflate. 0 Vicryl was now used to reapproximate the fascia in the subxiphoid and the umbilical ports. Because these wounds were relatively large I decided to go ahead and staple these wounds closed. A sterile dressing was applied. The patient was allowed to awaken and was taken recovery room in stable condition. Checked in the waiting room. There is no family present.
--- NOTE | 2022-08-24 14:01 | PC.NURSE ---
Pt arrived to PACU, oral airway in place, O2 at 6L/min via simple mask in place. Dressings to abdomen C/D/I.
--- NOTE | 2022-08-24 14:10 | PC.NURSE ---
Pt awake, oral airway removed, pt tolerated well.
[2022-08-24] MEDS: hyDRALAzine 20 mg/mL INJ 1 mL 10 MG IVP (14:25)
--- NOTE | 2022-08-24 14:25 | PC.NURSE ---
Blood pressures elevated, new orders received and administered, will continue to monitor.
[2022-08-24] MEDS: metoprolol tartrate 1 mg/1 mL SDV 5 mL 5 MG IVP (14:30)
--- NOTE | 2022-08-24 14:31 | ANE.PACU2 ---
Inpatient post-anesthesia follow up: Airway intact: Yes Vital signs: Temperature 97.6 F Pulse Rate 75 Respiratory Rate 18 Blood Pressure 196/115 Pulse Oximetry 91 Oxygen Delivery Me thod Room Air Oxygen Flow Rate 6 Fraction of Inspir ed Oxygen Hydration adequate: Yes Nausea and vomiting: No Pain level: 3 Mental status: Baseline
[2022-08-24] MEDS: fentaNYL 50 mcg/mL INJ 2mL IVP (14:35)
[2022-08-24] MEDS: oxyCODONE 5 mg IR Tab/Cap PO (17:19)
[2022-08-24] MEDS: potassium chloride ER 20 mEq Tablet PO (18:45)
[2022-08-24] MEDS: hydroCHLOROthiazide 25 mg Tablet PO (18:45)
[2022-08-24] MEDS: lisinopril 10 mg Tablet PO (18:45)
[2022-08-24] MEDS: morphine 4 mg/mL SDV 1 mL IVP ×2 (18:49→22:56)
[2022-08-24] MEDS: D5-NS 0.45% + KCL 20 mEq 20 MEQ/1,000 ML BAG 50 MEQ IV (21:58)
--- NOTE | 2022-08-24 23:48 | PM.PN ---
Subjective Subjective: Nurse called. The patient's pain medicine is not working. The patient is in pain. The patient is still very hypertensive. Will give an extra dose of lisinopril and give 0.2mg of clonidine now. Will increase the patient's oxycodone to 15 mg PO q 6 hours. Will give a single dose of toradol now. Will stop all IV narcotics. Vitals/I&O/Wt Last Vital Signs Temp 98.3 F 08/24/22 22:41 Pulse 92 08/24/22 23:36 Resp 18 08/24/22 22:56 BP 187/106 08/24/22 23:36 Pulse Ox 93 08/24/22 23:36 O2 Del Method Nasal Cannula 08/24/22 23:36 O2 Flow Rate 2 08/24/22 23:36 08/24/22 08/24/22 08/25/22 14:59 22:59 06:59 Intake Total 2700 / 2700 1700 / 4400 Output Total 25 / 25 Balance 2675 / 2675 1700 / 4375 Weight last 48 hrs Weight 410 lb Data 08/23/22 21:42 08/23/22 22:30 Attestations Medical Necessity Statement*: post op lap choly Coding Level of Care Code Acute Code for Chg Fwd Diagnoses
[2022-08-25] VITALS (22 sets, daily range): BP systolic 107–189; BP diastolic 58–108; PULSE 56–81; RESP 15–20; TEMP 36.3–36.9; O2SAT 89–96
[2022-08-25] MEDS: lisinopril 20 mg Tablet PO ×2 (00:11→17:26)
[2022-08-25] MEDS: FUROsemide 20 mg Tablet PO (00:12)
[2022-08-25] MEDS: potassium chloride ER 20 mEq Tablet 40 MEQ PO ×2 (00:12→06:26)
[2022-08-25] MEDS: cloNIDine 0.1 mg Tablet 0.2 MG PO (00:13)
[2022-08-25] MEDS: pantoprazole DR 40 mg Tablet PO (00:13)
[2022-08-25] MEDS: ketorolac 30 mg/mL INJ 15 MG IVP (00:35)
[2022-08-25 06:09] LABS: Basophils % 0.2 %; Hematocrit 46.9 % (42.0-52.0); Hemoglobin 14.9 g/dL (11.7-16.6); Lymphocytes # 0.9 10^3/uL (0.8-4.8); Lymphocytes % 5.4 %; Mean Corpuscular HGB Conc 31.8 g/dL (30.0-36.0); Mean Corpuscular Hemoglobin 28.6 pg (28.0-34.0); Mean Platelet Volume 11.7 fL (7.4-10.4); Monocytes # 1.1 10^3/uL (0.2-0.9); Monocytes % 6.4 %; Neutrophils # 15.18 10^3/uL (1.8-7.7); Neutrophils % 87.3 %; Nucleated Red Blood Cells % 0 %; Platelet Count 373 10^3/cmm (130-400); Red Blood Count 5.21 10^6/uL (4.1-5.3); White Blood Count 17.4 10^3/uL (4.0-10.0)
[2022-08-25 06:28] LABS: Alanine Aminotransferase 243 U/L (0-41); Albumin Level 3.8 g/dL (3.5-5.2); Alkaline Phosphatase 158 U/L (40-130); Anion Gap 16.7 (5-19); Aspartate Amino Transferase 188 U/L (0-40); Blood Urea Nitrogen 13 mg/dL (6-20); Calcium 9.3 mg/dL (8.5-10.5); Carbon Dioxide 25 mmol/L (22-29); Chloride 99 mmol/L (98-107); Globulin 3.5 g/dL (1.3-4.6); Glomerular Filtration Rate 74.1 mL/min (90-130); Glucose 134 mg/dL (65-115); Osmolality Calculated 286 mOsm/kg (285-295); Potassium 3.7 mmol/L (3.5-5.1); Sodium 137 mmol/L (136-145); Total Bilirubin 1.2 mg/dL (0.15-1.2); Total Protein 7.3 g/dL (6.6-8.7)
[2022-08-25] MEDS: oxyCODONE 5 mg IR Tab/Cap 15 MG PO (10:30)
[2022-08-25] MEDS: lisinopril 10 mg Tablet PO (10:32)
--- NOTE | 2022-08-25 10:46 | MRR_ITS ---
PROCEDURE INFORMATION: Exam: MR Abdomen Without Contrast Exam date and time: 08/25/2022 4:32 PM Age: 41 years old Clinical indication: Abdominal pain; Localized; Left; Prior surgery; Surgery date: Post-operative (0-2 days); Additional info: S/P lap choly. Looking for a bile leak. TECHNIQUE: Imaging protocol: Magnetic resonance imaging of the abdomen without contrast. COMPARISON: 1. CT abdomen pelvis w con* [id number] 03/30/2019 8:03 AM 2. CR (CHEST, ) 08/23/2022 9:47 PM FINDINGS: Liver: Mild loss of signal intensity on the out of phase sequence in the liver parenchyma, consistent with fatty infiltration. Gallbladder and bile ducts: The patient has had an interval cholecystectomy. No biliary ductal dilatation. No retained biliary stones. No obvious bile duct injury, however there is interval development of a small amount of free fluid in the abdomen compared with 08/23/2022, particularly around the liver and spleen. A bile leak cannot be ruled out. Pancreas: The pancreas is unremarkable. No pancreatic ductal dilatation. Spleen: The spleen is unremarkable. Adrenal glands: The right and left adrenal glands are unremarkable. Kidneys and ureters: The right and left kidneys are unremarkable. Stomach and bowel: Visualized stomach and intestines are unremarkable. Intraperitoneal space: No free fluid. Vasculature: No evidence for aortic aneurysm. Lymph nodes: No lymphadenopathy. Bones/joints: Multilevel degenerative changes of varying severity in the visualized spine. Soft tissues: No acute abnormality in the extra-abdominal soft tissues. MR/MR MRCP [id number] IMPRESSION: 1. The patient has had an interval cholecystectomy. No biliary ductal dilatation. No retained biliary stones. No obvious bile duct injury, however there is interval development of a small amount of free fluid in the abdomen compared with 08/23/2022, particularly around the liver and spleen. A bile leak cannot be ruled out. Further evaluation with nuclear medicine hepatobiliary imaging may be obtained if it will change clinical management. 2. Mild fatty infiltration of the visualized liver. Impression. Last. Incidental/nonacute findings are listed in the report.
--- NOTE | 2022-08-25 10:50 | P.PN_ITS ---
Subjective Subjective: The patient had a good deal of abdominal pain yesterday. The patient required adjustment of his pain medications. The patient was also extremely hypertensive yesterday. I adjusted his antihypertensives. The patient states that he feels better this morning. The patient's abdominal pain is graded as a 5/10. The patient is also complaining of some shoulder pain. I am concerned that this may be from diaphragmatic irritation. The patient has been out of bed. The patient has ambulated. Medications: Reviewed: Yes Vitals/I&O/Wt Last Vital Signs Temp 98.4 F 08/25/22 08:18 Pulse 78 08/25/22 08:18 Resp 18 08/25/22 10:30 BP 110/66 08/25/22 08:18 Pulse Ox 92 08/25/22 08:18 O2 Del Method Nasal Cannula 08/25/22 08:18 O2 Flow Rate 2 08/25/22 07:32 08/24/22 08/25/22 08/25/22 22:59 06:59 14:59 Intake Total 1700 / 4400 480 / 4880 480 / 480 Balance 1700 / 4375 480 / 4855 480 / 480 Weight last 48 hrs Weight 410 lb Physical Exam Narrative: Generally: The patient somewhat flushed in the face Lungs: Clear to auscultation and percussion Heart: Regular rate and rhythm Abdomen: Morbidly obese, soft, patient's wounds look good. Patient has normal active bowel sounds. I do not appreciate any significant tenderness outside of normal postoperative tenderness. Data 08/25/22 04:56 08/25/22 04:56 Attestation for Other Data: I personally reviewed and interpreted the following: (I reviewed all the patient's labs over the last 24 to 48 hours) A&P Assessment and plan (1) Cholecystitis: Status post laparoscopic cholecystectomy. we will obtain an MRCP today. We will look for bile leak. add motrin for pain. Continue oxycodone. (2) Hypertension: The patient was started on lisinopril with as needed clonidine. This seems to be controlling the patient's Hypertension. Attestations Medical Necessity Statement*: Patient is recovering from the patient's recovering from laparoscopic cholecystectomy Coding Level of Care Code Acute Code for [facility] Diagnoses Cholecystitis K81.9 Hypertension I10
[2022-08-25] MEDS: hydroCHLOROthiazide 25 mg Tablet PO (12:52)
[2022-08-25] MEDS: ibuprofen 800 mg tablet PO (14:55)
--- NOTE | 2022-08-25 19:02 | P.PN_ITS ---
Subjective Subjective: This patient's been hemodynamically stable. The patient is afebrile. The patient's abdomen is somewhat distended. The patient underwent an MRCP. I spoke with the radiologist. They saw simple fluid around the liver and spleen. They did not see a priyanka bile leak. They do not think that this simple fluid is blood. Vitals/I&O/Wt Last Vital Signs Temp 98.1 F 08/25/22 18:52 Pulse 74 08/25/22 18:52 Resp 18 08/25/22 18:52 BP 153/96 08/25/22 18:52 Pulse Ox 93 08/25/22 18:52 O2 Del Method Nasal Cannula 08/25/22 18:52 O2 Flow Rate 2 08/25/22 08:00 08/25/22 08/25/22 08/25/22 06:59 14:59 22:59 Intake Total 480 / 4880 1010 / 1010 1480 / 2490 Output Total 800 / 800 Balance 480 / 4855 1010 / 1010 680 / 1690 Weight last 48 hrs Weight 410 lb Physical Exam Narrative: Abdomen: Obese, surgical tenderness. Somewhat distended. Decreased bowel sounds. Data 08/25/22 04:56 08/25/22 04:56 A&P Assessment and plan (1) Cholecystitis: I believe with the MRI findings that this patient may have a bile leak. The mo st likely spot is from the cystic duct. We will take the patient to the operating room. I have explained the risk and benefits of this to the patient. I explained to him why I thought he has a cystic duct leak. He seems to understand this and would like to proceed. We will post the patient for immediate abdominal exploration via the laparoscope. Attestations Medical Necessity Statement*: post operative care Coding Level of Care Code Acute Code for Chg Fwd Diagnoses Cholecystitis K81.9
--- NOTE | 2022-08-25 20:13 | PC.NURSE ---
Patient transferred from floor to surgery at approximately 2005
[2022-08-25] MEDS: sodium chloride 0.9% 1,000 ML 30 ML IV (20:14)
--- NOTE | 2022-08-25 20:39 | P.ANESUD_ITS ---
Pre-Anesthetic Update Pre-Anesthetic Assessment: Date of Surgery/Procedure: 08/25/22 Preop Orly gnosis: acute cholecystitis Proposed Procedure: Operation Date: 08/24/22 11:35 Proposed Procedures p Laparoscopic Cholecystectomy(Not Applicable) - Chavez Frankel MD Operation Date: 08/25/22 20:20 Proposed Procedures p Laparoscopy Diagnostic(Not Applicable) - Chavez Frankel MD Any changes to Pre-Anesthetic Assessment?: Yes Changes from Pre-Anesthetic Assessment: Increasing abdominal pain postop, MRI fluid around GB suggestive of bile leak? Last Intake: Intake Last Liquid Date 08/25/22 Last Liquid Time 17:30 Last Solid Date 08/25/22 Last Solid Time 17:30 Labs Last 48hrs: Short CBC 08/23/22 08/25/22 Range/Units 21:42 04:56 WBC 12.0 H 17.4 H (4.0-10.0) 10^3/ uL Hgb 13.6 14.9 (11.7-16.6) g/dL Hct 42.8 46.9 (42.0-52.0) % MCV 90.3 90.0 (80-94) fl Plt Count 245 373 (130-400) 10^3/c mm Neut % (Auto) 88.6 87.3 % Neut # (Auto) 10.64 H 15.18 H (1.8-7.7) 10^3/u L BMP 08/23/22 08/23/22 08/25/22 21:42 22:30 04:56 Sodium Cancelled 139 137 Potassium Cancelled 3.2 L 3.7 Chloride Cancelled 100 99 Carbon Dioxide Cancelled 24 25 BUN Cancelled 6 13 Creatinine Cancelled 0.7 1.1 Glucose Cancelled 181 H 134 H Calcium Cancelled 9.4 9.3 Liver Function 08/23/22 08/23/22 08/25/22 Range/Units 21:42 22:30 04:56 Total Bilirubin Cancelled 1.1 1.2 AST Cancelled 177 H 188 H ALT Cancelled 114 H 243 H Alkaline Phosphata se Cancelled 142 H 158 H Albumin Cancelled 3.8 3.8 Vitals: Temperature 98.4 F 08/25/22 20:09 Temperature Source Temporal Artery S can 08/25/22 20:09 Pulse Rate 74 08/25/22 20:09 Pulse Rhythm Regular 08/25/22 08:00 Pulse Strength 3+ Normal 08/25/22 08:00 Respiratory Rate 16 08/25/22 20:09 Respiratory Effort Spontaneous 08/25/22 10:30 Respiratory Depth Normal 08/25/22 08:00 Respiratory Patter n Normal 08/25/22 10:30 Blood Pressure 167/81 08/25/22 20:09 Blood Pressure Yessy n 109 08/25/22 20:09 Blood Pressure Pos ition Semi Fowlers 08/25/22 05:00 Pulse Oximetry 94 08/25/22 20:09 Oxygen Delivery Me thod Room Air 08/25/22 20:09 Oxygen Flow Rate 2 08/25/22 08:00 Sepsis Recent Feve r Within 48 Hours No 08/23/22 21:11 Sepsis New/Unexpla ined Change in Men faith Status No 08/23/22 21:11 Exam: Pre-Anes Outpt Exam: alert, oriented x 3, clear to auscultation bilate rally and regular rate & rhythm Additional Exam Findings (including area of procedure): No distress. Cardiac Studies: No Data to Display
--- NOTE | 2022-08-25 21:47 | PC.NURSE ---
Pt arrived to PACU, oral airway in place, O2 at 6L/min via simple mask. Dressings to abdomen C/D/I, adrianne drain in place, 100mL drained.
--- NOTE | 2022-08-25 21:49 | PM.OP ---
Operative Report Date of procedure: August 25, 2022 Pre-op diagnosis: Status post laparoscopic cholecystectomy, possible bile leak Post-op diagnosis: same Procedure done: Ligation of cystic duct Pathology: Cystic duct Surgeon: Chavez Frankel Anesthesia: General Estimated blood loss (mL): 25 Complications: None noted Findings: For 100 cc of bile were sucked out of the abdomen. The 2 clips which were placed on the cystic duct have fallen off. The cystic duct was located and stapled with a NEYMAR stapler. Condition: stable Disposition: PACU Brief History: This is a morbidly obese 41-year-old gentleman who presented with signs and symptoms of acute cholecystitis. The patient was taken the operating room and underwent a laparoscopic cholecystectomy. The patient's cystic duct was somewhat thick. Postoperatively the patient had more pain than. He also complained of bilateral shoulder pain. An MRCP showed fluid in the abdomen that was not consistent with a hematoma because of this I thought the patient may have a bile leak. I spoke with the radiologist. They were concerned about a possible bile leak but did not see a common bile duct injury. Because of this, I thought the best thing to do would be to take the patient back to the operating room and see if the clips had fallen off the cystic duct. The risk and benefits of this were explained to the patient the patient seemed understand the risk and benefits and wanted to proceed. Procedure: Procedure in detail: The patient was brought to the operative room placed in supine position. After adequate general endotracheal anesthesia, the patient's abdomen was prepped and draped in usual sterile fashion. Following this a timeout was performed. The patient identifiers as well as the goals procedure were discussed. Everyone in the room agreed. Wilmer were removed from the supraumbilical incision, the xiphoid incision and the midclavicular incision. A 12 mm trocar was placed in the supraumbilical incision. The abdomen was now insufflated to 15 mmHg. The camera was placed through this incision. There was obvious bile in the abdomen. A 12 mm port was placed at the subxiphoid wound and a 5 mm port was placed through the midclavicular line wound. The patient was placed in reverse Trendelenburg and rolled with his left side down his right side up. The bowel was sucked out of the abdomen. Approximate 400 cc were used. Now using a blunt grasper the liver was lifted up. We obtained a 30 degree scope and carefully inspected the gallbladder fossa. The Surgicel was removed and taken out of the abdomen. There was a modest amount of clot in the gallbladder fossa. This was removed with the suction store merchandiser. Using the suction and the suction store merchandiser I was able to locate the cystic duct. The clips had fallen off of the cystic duct. The cystic duct was carefully inspected. I could see the cystic duct actually going into the common bile duct. Because the cystic duct was somewhat broad I decided to use a NEYMAR stapler with a white load. I was able to staple across it. I did not compromise the common bile duct. Upon further inspection, there did not appear to be any more bile leaking. This area was irrigated with copious amounts of normal saline the gallbladder fossa was again inspected. I did not appreciate any more bile leaking. A 14 Serbian Mian drain was placed through the 5 mm port and placed in the gallbladder fossa. Now all 3 ports were removed. The patient's abdomen was allowed to deflate. 0 Vicryl was used to reapproximate the fascia in the supraumbilical and the subxiphoid incisions. These wounds were then irrigated with copious amounts of normal saline and renetta were used to close the skin. Renetta were used to close the skin around the drain tube in the midclavicular line and the drain tube was sutured in the place using 3-0 nylon. The patient was now awakened and taken recovery room in stable condition. There is no family present in the waiting room.
--- NOTE | 2022-08-25 21:52 | P.PCN_ITS ---
PACU note Narrative: VSS, Good respiratory effort, report to ROBOTYPE OPERATOR Exam: awake
--- NOTE | 2022-08-25 21:52 | PM.PACU ---
PACU note Narrative: VSS, Good respiratory effort, report to BASS GUITAR TEACHER Exam: awake
--- NOTE | 2022-08-25 22:02 | PC.NURSE ---
Pt awake, oral airway removed at this time, pt tolerated well.
[2022-08-25 23:27] LABS: Glucose Point of Care 130 mg/dL (70-110)
[2022-08-26] VITALS (14 sets, daily range): BP systolic 127–169; BP diastolic 75–103; PULSE 65–86; RESP 17–20; TEMP 36.2–36.8; O2SAT 90–97
[2022-08-26 06:01] LABS: Basophils % 0.1 %; Hematocrit 46.5 % (42.0-52.0); Hemoglobin 14.8 g/dL (11.7-16.6); Lymphocytes # 1.1 10^3/uL (0.8-4.8); Lymphocytes % 6.7 %; Mean Corpuscular HGB Conc 31.8 g/dL (30.0-36.0); Mean Corpuscular Hemoglobin 28.7 pg (28.0-34.0); Mean Corpuscular Volume 90.1 fl (80-94); Mean Platelet Volume 11.1 fL (7.4-10.4); Monocytes # 0.8 10^3/uL (0.2-0.9); Monocytes % 4.9 %; Neutrophils # 14.02 10^3/uL (1.8-7.7); Neutrophils % 87.8 %; Nucleated Red Blood Cells % 0 %; Platelet Count 323 10^3/cmm (130-400); Red Blood Count 5.16 10^6/uL (4.1-5.3); Red Cell Distribution Width 13.2 % (12.1-15.1)
[2022-08-26 06:13] LABS: Alanine Aminotransferase 167 U/L (0-41); Albumin Level 3.6 g/dL (3.5-5.2); Alkaline Phosphatase 140 U/L (40-130); Anion Gap 16.1 (5-19); Aspartate Amino Transferase 85 U/L (0-40); Blood Urea Nitrogen 19 mg/dL (6-20); Calcium 9.1 mg/dL (8.5-10.5); Carbon Dioxide 24 mmol/L (22-29); Chloride 100 mmol/L (98-107); Globulin 3.4 g/dL (1.3-4.6); Glomerular Filtration Rate 82.8 mL/min (90-130); Glucose 124 mg/dL (65-115); Osmolality Calculated 286 mOsm/kg (285-295); Potassium 4.1 mmol/L (3.5-5.1); Sodium 136 mmol/L (136-145); Total Bilirubin 1.1 mg/dL (0.15-1.2)
--- NOTE | 2022-08-26 07:31 | P.PN_ITS ---
Subjective Subjective: This patient states that he feels better this morning. He has no nausea or vomiting. The patient states that his abdominal pain is less. Medications: Reviewed: Yes Vitals/I&O/Wt Last Vital Signs Temp 98.0 F 08/26/22 05:25 Pulse 86 08/26/22 06:00 Resp 19 H 08/26/22 05:25 BP 134/77 08/26/22 05:25 Pulse Ox 92 08/26/22 05:25 O2 Del Method Nasal Cannula 08/26/22 05:25 O2 Flow Rate 3 08/26/22 05:25 08/25/22 08/26/22 08/26/22 22:59 06:59 14:59 Intake Total 2780 / 3790 Output Total 1625 / 1625 370 / 1994 Balance 1155 / 2165 -370 / 1795 Physical Exam Narrative: Generally: No acute distress Lungs: Clear to auscultation Heart: Regular rate and rhythm without murmurs. There is no S3 or S4. There is no rubs clicks or JVD noted Abdomen: Morbidly obese, soft, nontender (surgical tenderness), the patient's dressings are clean and dry. The patient had 470 cc out of his drain. Extremities: Good capillary refill in both his hands and feet Neurologic: The patient is awake, alert, oriented x3. Data 08/26/22 05:53 08/26/22 05:53 A&P Assessment and plan (1) Cholecystitis: This patient is status. Postoperatively, the patient had a bile leak from the cystic duct. This has been stapled closed. (I took the patient back to the operating room yesterday in order to do this) the patient is doing well now postoperatively. I have asked the patient to get up and walk. The patient is on a regular diet. We will monitor the patient's drain output. will give the patient an extra dose of ertapenem today. I believe can stop the patient's antibiotics if the patient does not require any further surgical intervention. I spoken with Dr. Khan. He has agreed to follow this patient. I spoke with the patient. I explained to him that I was here for just the last week and will be leaving today. He seems to understand. I asked him about questions about the surgery I did yesterday. The patient states that he does not have any. All questions have been addressed. Attestations 2 Medical Necessity Statement*: post op Coding Level of Care Code Acute Code for Chg Fwd Diagnoses Cholecystitis K81.9
[2022-08-26] MEDS: ertapenem 1,000 MG in sodium chloride 0.9% (plus) 100 ML 200 MG IV (09:33)
[2022-08-26] MEDS: lisinopril 20 mg Tablet PO ×2 (09:36→18:40)
[2022-08-26] MEDS: ibuprofen 800 mg tablet PO ×3 (09:36→20:02)
[2022-08-26] MEDS: hydroCHLOROthiazide 25 mg Tablet PO (09:38)
[2022-08-26] MEDS: cloNIDine 0.1 mg Tablet PO (20:02)
[2022-08-27] VITALS (8 sets, daily range): BP systolic 135–174; BP diastolic 82–98; PULSE 60–82; RESP 16–17; TEMP 36.1–36.8; O2SAT 92–96
[2022-08-27 04:41] LABS: Basophils # 0.1 10^3/uL (0.0-0.1); Basophils % 0.4 %; Eosinophils # 0.1 10^3/uL (0.0-0.8); Eosinophils % 0.5 %; Hemoglobin 13.7 g/dL (11.7-16.6); Lymphocytes # 2.4 10^3/uL (0.8-4.8); Lymphocytes % 16.8 %; Mean Corpuscular HGB Conc 31.9 g/dL (30.0-36.0); Mean Corpuscular Hemoglobin 28.8 pg (28.0-34.0); Mean Corpuscular Volume 90.3 fl (80-94); Mean Platelet Volume 10.9 fL (7.4-10.4); Monocytes # 1.3 10^3/uL (0.2-0.9); Monocytes % 9.1 %; Neutrophils # 10.22 10^3/uL (1.8-7.7); Neutrophils % 72.8 %; Nucleated Red Blood Cells % 0 %; Platelet Count 265 10^3/cmm (130-400); Red Blood Count 4.76 10^6/uL (4.1-5.3); Red Cell Distribution Width 13.1 % (12.1-15.1); White Blood Count 14.1 10^3/uL (4.0-10.0)
[2022-08-27 05:07] LABS: Alanine Aminotransferase 112 U/L (0-41); Albumin Level 3.3 g/dL (3.5-5.2); Alkaline Phosphatase 132 U/L (40-130); Blood Urea Nitrogen 26 mg/dL (6-20); Calcium 9.2 mg/dL (8.5-10.5); Carbon Dioxide 25 mmol/L (22-29); Chloride 103 mmol/L (98-107); Globulin 3.3 g/dL (1.3-4.6); Glomerular Filtration Rate 107.1 mL/min (90-130); Glucose 94 mg/dL (65-115); Osmolality Calculated 295 mOsm/kg (285-295); Sodium 140 mmol/L (136-145); Total Bilirubin 0.7 mg/dL (0.15-1.2); Total Protein 6.6 g/dL (6.6-8.7)
[2022-08-27 05:12] LABS: Anion Gap 15.9 (5-19); Potassium 3.9 mmol/L (3.5-5.1)
[2022-08-27 05:13] LABS: Aspartate Amino Transferase 54 U/L (0-40)
[2022-08-27] MEDS: morphine 4 mg/mL SDV 1 mL IVP (05:43)
[2022-08-27] MEDS: hydroCHLOROthiazide 25 mg Tablet PO (07:34)
[2022-08-27] MEDS: ibuprofen 800 mg tablet PO ×2 (07:34→15:00)
[2022-08-27] MEDS: lisinopril 20 mg Tablet PO (07:35)
--- NOTE | 2022-08-27 09:47 | PC.CHAP ---
Pastoral Care Encounter/Spiritual Assessment Type of Contact [] Declined vice president safety visit [] Patient/Family/Request visit [] Outpatient visit [] Follow-up visit [] Physician referral [] Code/Alert [x] Routine visit [] Staff referral [] Actively dying [] Patient sleeping [] Family support [] [] Out of room [] Palliative care [] [] Receiving care in room [] Pre-surgical visit [] Trauma [] Long length of stay [] ICU visit [] Other: Relational/Emotional Strength [x] Patient feels connected with others/family/visitors/staff [] Distress [] Loneliness/isolation [] Abandonment Spirituality of Patient [x] Person of Radha [] Attends Yazdanism of their Ardha [x] Believes in Prayer [] Reads Bible or Latter Day materials [] There are Spiritual issues to be addressed Appliance Adjuster Interventions [x] Prayer [] Active listening [] Non-anxious presence [x] Spiritual/emotional support [] Crisis/trauma care [] Spiritual counseling [] Bereavement support [] Provided bereavement packet [] Provided Bible/devotional materials [] Provided toy/stuffed animal, coloring book to patient or family member [] Provided Communion [] Anointing/[place] [] Salvation [] Completed spiritual assessment [] Other: Impact on Illness or Injury [] Angry [] Fearful [] Anxious [] Often cries [] Exhaustion [] Unable to work [] Unable to attend buddhism [] Unable to walk/stand [] Unable to read [] Unable to drive [] Unable to eat/drink [] Unable to sleep [] Unable to be with family [] Patient intubated [] Other: Summary Time spent with patient 10 min
--- NOTE | 2022-08-27 15:06 | PM.DCS ---
Discharge Providers Date of Admission: 08/24/22 00:00 Date of Discharge: August 27, 2022 Attending Provider at Admission: Chavez Frankel MD Attending Provider at Discharge: Dr. Praveen Khan, Diagnoses at Discharge Discharge Diagnosis (1) Cholecystitis: Status: Acute Reason for Visit Reason for Visit: ABD PAIN Hospital Course Hospital Course Is a very pleasant 41-year-old gentleman who presented to the hospital with acute cholecystitis. He underwent laparoscopic cholecystectomy. Postoperatively he was found to have a bile leak and needed to repeat surgery with stapling of the cystic duct. The drain was serosanguineous upon discharge and his pain was controlled. He was discharged home in good condition with appropriate follow-up. Physical Exam Narrative: General : Patient is well developed , no acute distress, oriented x3 Head : Normal cephalic, a-traumatic. Ears : Pinnae and external canal are normal. Hearing is normal. Eyes : PERRLA, Sclera and injection are normal. No conjunctival discharge. Nose : Mucous membranes are without erythema. Throat : buccal mucosa is normal, gums are without significant recession or hypertrophy. Lungs : Equal chest rise bilaterally, no use of accessory muscles, trachea is midline. Cor : Rate and rhythm are normal. Abdomen : Soft, ND, appropriately tender, no g/r/m Drain serosanguineous Incisions intact without erythema or exudate Extremities : No edema, no cyanosis or clubbing, dorsalis pedis pulses are present bilaterally, non-tender to palpation of calves. Upper extremities are normal bilaterally. Back : non-tender to palpation, no CVA tenderness. Neuro : CN II - XII intact, Upper and lower extremities have equal and full strength Discharge Data Studies Completed and Pending Completed Studies During Hospitalization Category Date Time Status CXRP [XR chest 1V portable [id number]] Stat Exams 08/23/22 21:09 Completed MR MRCP [id number] Stat MRI 08/25/22 10:46 Completed US gall bladder [id number] Stat Ultrasound 08/23/22 21:09 Completed Pending at discharge Category Date Time Status Pathology: Surgical [PTH] Routine Pth 08/24/22 13:42 Received Pathology: Surgical [PTH] Routine Pth 08/25/22 21:41 Received Radiology Impressions Chest X-Ray 08/23/22 21:09 IMPRESSION: No acute findings. Stable appearance of the chest compared with 07/25/2019. Gallbladder Ultrasound 08/23/22 21:09 IMPRESSION: 1. Gallstones, gallbladder sludge, gallbladder wall thickening and positive sonographic Wilkins sign suggests gallstone cholecystitis. 2. Hepatomegaly and fatty infiltration of the liver. Cholangiopancreatography MRI 08/25/22 10:46 IMPRESSION: 1. The patient has had an interval cholecystectomy. No biliary ductal dilatation. No retained biliary stones. No obvious bile duct injury, however there is interval development of a small amount of free fluid in the abdomen compared with 08/23/2022, particularly around the liver and spleen. A bile leak cannot be ruled out. Further evaluation with nuclear medicine hepatobiliary imaging may be obtained if it will change clinical management. 2. Mild fatty infiltration of the visualized liver. Impression. Last. Incidental/nonacute findings are listed in the report. ADDENDUM: 08/25/22 0967 Please note the addendum to the original report: The free fluid in the abdomen does not appear complex such as hemorrhage. Again, bile leak cannot definitely be ruled out. THIS REPORT CONTAINS FINDINGS THAT MAY BE CRITICAL TO PATIENT CARE. The findings were verbally communicated via telephone conference with Chavez Rivera at 5:58 PM CDT on 08/25/2022. The findings were acknowledged and understood. Laboratory Results WBC 14.1 10^3/uL (4.0-10.0) H 08/27/22 04: RBC 4.76 10^6/uL (4.1-5.3) 08/27/22 04:29 Hgb 13.7 g/dL (11.7-16.6) 08/27/22 04: Hct 43.0 % (42.0-52.0) 08/27/22 04: MCV 90.3 fl (80-94) 08/27/22 04: MCH 28.8 pg (28.0-34.0) 08/27/22 04: MCHC 31.9 g/dL (30.0-36.0) 08/27/22 04: RDW 13.1 % (12.1-15.1) 08/27/22 04: Plt Count 265 10^3/cmm (130-400) 08/27/22 04: MPV 10.9 fL (7.4-10.4) H 08/27/22 04:29 Neut % (Auto) 72.8 % 08/27/22 04:29 Lymph % (Auto) 16.8 % 08/27/22 04:29 [place] % (Auto) 9.1 % 08/27/22 04:29 Eos % (Auto) 0.5 % 08/27/22 04:29 Baso % (Auto) 0.4 % 08/27/22 04:29 Neut # (Auto) 10.22 10^3/uL (1.8-7.7) H 08/27/22 04:29 Lymph # (Auto) 2.4 10^3/uL (0.8-4.8) 08/27/22 04:29 [place] # (Auto) 1.3 10^3/uL (0.2-0.9) H 08/27/22 04:29 Eos # (Auto) 0.1 10^3/uL (0.0-0.8) 08/27/22 04: Baso # (Auto) 0.1 10^3/uL (0.0-0.1) 08/27/22 04:29 Nucleated RBC % (auto) 0 % 08/27/22 04: Nucleated RBCs # 0.0 /100WBC 08/27/22 04:29 Sodium 140 mmol/L (136-145) 08/27/22 04: Potassium 3.9 mmol/L (3.5-5.1) 08/27/22 04: Chloride 103 mmol/L (98-107) 08/27/22 04: Carbon Dioxide 25 mmol/L (22-29) 08/27/22 04:29 Anion Gap 15.9 (5-19) 08/27/22 04:29 BUN 26 mg/dL (6-20) H 08/27/22 04:29 Creatinine 0.8 mg/dL (0.7-1.2) 08/27/22 04:29 GFR Calculation 107.1 mL/min (90-130) 08/27/22 04:29 Glucose 94 mg/dL (65-115) 08/27/22 04:29 POC Glucose 130 mg/dL (70-110) H 08/25/22 23:14 Calculated Osmolality 295 mOsm/kg (285-295) 08/27/22 04:29 Calcium 9.2 mg/dL (8.5-10.5) 08/27/22 04:29 Total Bilirubin 0.7 mg/dL (0.15-1.2) 08/27/22 04:29 AST 54 U/L (0-40) H 08/27/22 04:29 ALT 112 U/L (0-41) H 08/27/22 04:29 Alkaline Phosphatase 132 U/L (40-130) H 08/27/22 04:29 Total Protein 6.6 g/dL (6.6-8.7) 08/27/22 04:29 Albumin 3.3 g/dL (3.5-5.2) L 08/27/22 04:29 Globulin 3.3 g/dL (1.3-4.6) 08/27/22 04:29 Lipase 26 U/L (13-60) 08/23/22 22:30 Procedures Performed Laparoscopic cholecystectomy Repeat laparoscopy with stapling of the cystic duct Vitals Last Vital Signs Temp 98.1 F 08/27/22 12:00 Pulse 82 08/27/22 13:49 Resp 16 08/27/22 12:00 BP 174/90 08/27/22 12:00 Pulse Ox 93 08/27/22 12:00 O2 Del Method Room Air 08/27/22 08:00 O2 Flow Rate 2 08/27/22 07:47 Discharge Plan Discharge Patient Disposition: Home Condition: Stable Prescriptions: New oxycodone-acetaminophen 5-325 mg tablet 1 tab PO Q6H PRN (Reason: pain) Qty: 20 0RF DOK 100 mg capsule 100 mg PO BID Qty: 14 0RF Discharge Orders: Discharge Order (Routine); Ordered 08/27/22 Ordered By: Praveen Khan Referrals: Praveen Khan DO [Physician] - 2 weeks Payal Vasquez FNP [Referring] - 09/03/22 1:00 pm (Call before appointment to discuss sliding scale. ) Discharge Diet: Advance as tolerated Discharge Activity: Limit activity as instructed Patient Instructions: Laparoscopic Cholecystectomy (GEN), Opioid Safety, Post Anesthesia Care Activity Restrictions/Additional Instructions: No lifting, pushing or pulling over 15 pounds for 6 weeks. Do not soak incisions underwater for 2 weeks. Shower daily. Discharge Attestations Time Spent in Discharge Care*: less than 30 min Quality Metrics Clinical Quality Measures [ No reported AMI, CVA or VTE this stay] Coding Level of Care Code Acute Code for Chg Fwd Diagnoses Cholecystitis K81.9
--- NOTE | 2022-08-27 16:08 | PC.NURSE ---
THIS NURSE REMOVED PATIENTS MIKIE DRAIN.
== END 2022-08-27 17:41 | disposition home or self-care (01) ==
LOC: ER 23:08 → MEDSURG 08-24 00:24
PROVIDERS: Admitting Provider Surgery Surgical Critical Care; Emergency Provider Emergency Medicine; Visit Provider Surgery Surgical Critical Care
PROC: 0FT44ZZ Resection of Gallbladder, Percutaneous Endoscopic Approach (ICD-10-PCS; CPT 47562; principal; 2022-08-24 11:15)
PROC: (CPT 49320; principal; 2022-08-25 20:20)
DX: K80.00 Calculus of gallbladder with acute cholecystitis without obstruction (principal); K83.8 Other specified diseases of biliary tract; I10 Essential (primary) hypertension; E66.01 Morbid (severe) obesity due to excess calories; Z68.43 Body mass index [BMI] 50.0-59.9, adult; Z88.0 Allergy status to penicillin
CPT/HCPCS: 47562; 36415; 36416; 71045; 74181; 76705; 80053; 82962; 83690; 85025; 88304; 88307; 93005; 96365; 96375; 96376; 99285; G0378; J0330; J0360; J1100; J1170; J1335; J1885; J1956; J2250; J2270; J2405; J2704; J2710; J3010; J3480; J3490; J7030

== ENCOUNTER 2022-08-29 08:28 | Emergency (ER) | payer MEDICAID, SELFPAY ==
[2022-08-29] VITALS (21 sets, daily range): BP systolic 143–218; BP diastolic 87–168; PULSE 82–115; RESP 13–22; TEMP 36.6; O2SAT 92–96
--- NOTE | 2022-08-29 08:30 | CTR_ITS ---
PROCEDURE INFORMATION: Exam: CT Abdomen And Pelvis With Contrast Exam date and time: 08/29/2022 9:32 AM Age: 42 years old Clinical indication: Bloating; Abdominal pain; Generalized; Prior surgery; Surgery date: 3-7 days post-operative; Surgery type: Gb x 5 days ago; Additional info: Abd pain TECHNIQUE: Imaging protocol: Computed tomography of the abdomen and pelvis with contrast. Radiation optimization: All CT scans at this facility use at least one of these dose optimization techniques: automated exposure control; mA and/or kV adjustment per patient size (includes targeted exams where dose is matched to clinical indication); or iterative reconstruction. Contrast material: OMNI 350; Contrast volume: 100 ml; Contrast route: INTRAVENOUS (IV); REPORTING DATA: Count of CT and Cardiac NM exams in prior 12 months: This patient has received 0 known CTs and 0 known cardiac nuclear medicine studies in the 12 months prior to the current study. COMPARISON: MR MRCP [id number] 08/25/2022 4:32 PM RADIATION DOSE METRICS: Total DLP (mGy-cm): 1452.83 FINDINGS: Lungs: Scattered bibasilar subsegmental atelectasis. Spleen is borderline enlarged unchanged with chronic granulomatous calcifications. Liver: Liver is mildly enlarged with diffuse fatty infiltration. Gallbladder and bile ducts: Gallbladder has been removed by history. There is a oval-shaped complex mass within the gallbladder fossa measuring 8 x 4 cmdd containing some solid nodular components developed or progressed from prior study which in view of patient's history may represent an organized hematoma or complex biloma. Bile ducts are not dilated. Pancreas: Normal. No ductal dilation. Spleen: Normal. No splenomegaly. Adrenal glands: Normal. No mass. Kidneys and ureters: Normal. No hydronephrosis. Stomach and bowel: Unremarkable. No obstruction. No mucosal thickening. Appendix: No evidence of appendicitis. Intraperitoneal space: There is increasing ascites within the abdomen and pelvis of uncertain etiology but in view of patient's history raises concern for biliary leak. There is also some ill-defined fat stranding the within the peritoneal cavity at different locations concerning for developing peritonitis. There is a small amount of intraperitoneal free air just deep to the abdominal wall within the mid-lower abdomen that may be postoperative in nature. Vasculature: Unremarkable. No abdominal aortic aneurysm. Lymph nodes: Unremarkable. No enlarged lymph nodes. Urinary bladder: Unremarkable as visualized. Reproductive: Unremarkable as visualized. Bones/joints: There is chronic grade 1 isthmic spondylolisthesis with secondary degenerative changes L5-S1. Soft tissues: There is diffuse swelling of right lateral abdominal wall musculature with additional fluid within the overlying subcutaneous fat planes etiology of which is unclear, possibly due to cellulitis. CT/CT abdomen pelvis w con* [id number] IMPRESSION: 1. Recent cholecystectomy with small amount of free intraperitoneal air presumed secondary to the recent surgery. Follow-up as clinically indicated. 2. 8 x 4 cm complex circumscribed mass within the gallbladder fossa. Consider organized hematoma or complex biloma. 3. Increasing ascites within the abdomen or pelvis which in view of patient's history raises concern for biliary ascites and bile leak. Additional ill-defined fat stranding within the peritoneal cavity concerning for developing peritonitis. 4. Unexplained swelling of the right lateral abdominal wall. Please correlate for cellulitis. 5. Scattered bibasilar subsegmental atelectasis. 6. Additional chronic findings as above.
--- NOTE | 2022-08-29 08:30 | ECG_ITS ---
[facility] Test Date: 2022-08-29 Pat Name: Louis Reeder Department: Room: Gender: Male Twisting Department End Finder: : 1980 Requested By: Radhames Allen Order Number: [id number] Ruth MD: Esmer Mejía M.D. Measurements Intervals [place] Rate: 88 P: 11 FL: 150 QRS: -18 QRSD: 113 T: 43 QT: 364 QTc: 442 Interpretive Statements SINUS RHYTHM MODERATE INTRAVENTRICULAR CONDUCTION DELAY [110+ ms QRS DURATION] Compared to ECG 08/23/2022 21:18:53 Sinus bradycardia no longer present Electronically Signed On 08-29-2022 21:19:46 CDT by Esmer Mejía M.D. [email or web address]
--- NOTE | 2022-08-29 08:44 | ED_ITS ---
HPI - Abdominal Pain General: Chief Complaint: Abdominal Pain Stated Complaint: abdomen pain, distention post surgery Time Seen by Provider: 08/29/22 08:29 Source: patient Mode of arrival: EMS History of Present Illness: 42-year-old male returns emergency room via EMS. He was in 5 days ago with an acute cholecystitis. He laparoscopic ostectomy and then return to the OR for stapling of the cystic duct with a bile leak. Subsequently had a drain placed and then removed. His pain was controlled he was doing better. He states he has been passing gas since arriving home but his not had any bowel movements he is nauseous and has increasing severe abdominal pain bloating sensation denies any fever. Denies dysuria urgency or frequency no hematochezia melena hematemesis coffee-ground emesis. MD elicited complaint: abdominal pain Onset (ago): hour(s) Pain Consistency: constant Location: Diffuse Severity: severe Quality: cramping Exacerbating factors: nothing Relieving factors: nothing Associated Symptoms: Reports GI cramping and nausea; Denies anorexia, belching, bloating, change in bowel habits, change in stool character, chills, coffee ground emesis, constipation, diarrhea, dyspepsia, dysuria, excessive flatus, fever(s), heartburn, hematochezia, hematuria, h ematemesis, fecal incontinence, loose stools, melena, poor appetite, syncope and vomiting Review of Systems Const: Denies: fever(s), chills, body aches, change in appetite, fatigue or malaise Card: Reports: orthopnea (Due to abdominal pain with deep inspiration); Denies: chest pain, palpitations, edema, syncope or dyspnea on exertion Resp: Reports: dyspnea (Abdominal pain with inspiration); Denies: productive cough or non-productive cough GI: Reports: abdominal pain, nausea and GI cramping; Denies: vomiting, hematemesis, coffee ground emesis, heartburn, diarrhea, constipation, bloating, belching, excessive flatus, fecal incontinence, change in bowel habits, change in stool character, hematochezia or melena : Denies: flank pain, dysuria, urinary frequency, urinary urgency or hematuria Skin/Breast: Denies: rash or pruritus PFSH ED PFSH: Medical History Hypertension No pertinent past medical history Social History Smoking and tobacco status: never smoked Physical Exam Const: GENERAL APPEARANCE: cooperative and comfortable ORIENTATION/CONSCIOUSNESS: Yes awake, Yes oriented to person, Yes oriented to place and Yes oriented to time HENMT: COMMON NORMALS: normocephalic, atraumatic and hearing grossly normal bilaterally HEAD & SCALP: normocephalic and atraumatic Resp: COMMON NORMALS: normal respiratory effort, No retractions, No use of accessory muscles and clear to auscultation bilaterally AUSCULTATION: clear to auscultation bilaterally Cardio: COMMON NORMALS: regular rate, regular rhythm and No murmurs present (Cardio) RATE: regular rate RHYTHM: regular rhythm GI: COMMON NORMALS: No hepatosplenomegaly present AUSCULTATION: Yes Absent bowel sounds PALPATION: Yes Tenderness to palpation present (GI) (Epigastric/right upper quadrant) Details: RUQ, No Guarding due to palpation present (GI) and Yes No hepatosplenomegaly present OTHER: Bile soaked gauze where the previous bile duct drain was remainder of the inci sions are stapled well approximated no sign of drainage or inflammation no erythema no induration Extremity: COMMON NORMALS: normal to inspection, capillary refill normal, no clubbing, cyanosis or edema, no calf tenderness and no pedal edema Neuro: SENSORIUM/ORIENTATION: Yes oriented to person, Yes oriented to place and Yes oriented to time Skin: COMMON NORMALS: no rashes or lesions noted GENERAL SKIN EXAM: no rashes or lesions noted Course Vital Signs: Vital signs: Vital Signs Temperature 97.9 F 08/29/22 08:33 Pulse Rate 97 08/29/22 14:15 Respiratory Rate 15 08/29/22 14:00 Blood Pressure 158/87 08/29/22 14:15 Pulse Oximetry 94 08/29/22 14:15 Oxygen Delivery Me thod Room Air 08/29/22 08:33 MDM - Abdominal Pain Medical Decision Making Abdominal pain jaundice CT shows biloma. Increased ascites concerning for chemical peritonitis with bile leak HIDA scan confirms. There is a small amount of free air but no sign of perforation suspect the left over from recent surgery. Discussed Dr. Khan he recommends transfer for GI for ERCP you were able to get [facility] in [place] to accept on transfer directly to the ER Dr. Willingham is receiving. Patient has been started on Zosyn and given appropriate pain medications. Medical Records I reviewed the patient's medical records. Lab Data I reviewed the patient's lab results. 08/29/22 08:50 08/29/22 08:50 Labs/Radiology: Radiology Impressions Abdomen/Pelvis CT 08/29/22 08:30 IMPRESSION: 1. Recent cholecystectomy with small amount of free intraperitoneal air presumed secondary to the recent surgery. Follow-up as clinically indicated. 2. 8 x 4 cm complex circumscribed mass within the gallbladder fossa. Consider organized hematoma or complex biloma. 3. Increasing ascites within the abdomen or pelvis which in view of patient's history raises concern for biliary ascites and bile leak. Additional ill-defined fat stranding within the peritoneal cavity concerning for developing peritonitis. 4. Unexplained swelling of the right lateral abdominal wall. Please correlate for cellulitis. 5. Scattered bibasilar subsegmental atelectasis. 6. Additional chronic findings as above. Hepatobiliary Scan Nuclear Medicine 08/29/22 10:44 IMPRESSION: Findings compatible with bile leak in the gallbladder fossa extending along the undersurface of the LEFT hepatic lobe Laboratory Results WBC 25.2 10^3/uL (4.0-10.0) H 08/29/22 08:50 RBC 6.20 10^6/uL (4.1-5.3) H 08/29/22 08:50 Hgb 17.5 g/dL (11.7-16.6) H 08/29/22 08:50 Hct 54.1 % (42.0-52.0) H 08/29/22 08:50 MCV 87.3 fl (80-94) 08/29/22 08:50 MCH 28.2 pg (28.0-34.0) 08/29/22 08:50 MCHC 32.3 g/dL (30.0-36.0) 08/29/22 08:50 RDW 13.0 % (12.1-15.1) 08/29/22 08:50 Plt Count 516 10^3/cmm (130-400) H 08/29/22 08:50 MPV 10.9 fL (7.4-10.4) H 08/29/22 08:50 Neut % (Auto) 85.2 % 08/29/22 08:50 Lymph % (Auto) 5.8 % 08/29/22 08:50 Kinney % (Auto) 7.8 % 08/29/22 08:50 Eos % (Auto) 0.2 % 08/29/22 08:50 Baso % (Auto) 0.3 % 08/29/22 08:50 Neut # (Auto) 21.46 10^3/uL (1.8-7.7) H 08/29/22 08:50 Lymph # (Auto) 1.5 10^3/uL (0.8-4.8) 08/29/22 08:50 Kinney # (Auto) 2.0 10^3/uL (0.2-0.9) H 08/29/22 08:50 Eos # (Auto) 0.1 10^3/uL (0.0-0.8) 08/29/22 08:50 Baso # (Auto) 0.1 10^3/uL (0.0-0.1) 08/29/22 08:50 Nucleated RBC % (auto) 0 % 08/29/22 08:50 Nucleated RBCs # 0.0 /100WBC 08/29/22 08:50 Sodium 137 mmol/L (136-145) 08/29/22 08:50 Potassium 3.5 mmol/L (3.5-5.1) 08/29/22 08:50 Chloride 97 mmol/L (98-107) L 08/29/22 08:50 Carbon Dioxide 26 mmol/L (22-29) 08/29/22 08:50 Anion Gap 17.5 (5-19) 08/29/22 08:50 BUN 26 mg/dL (6-20) H 08/29/22 08:50 Creatinine 1.0 mg/dL (0.7-1.2) 08/29/22 08:50 GFR Calculation 82.3 mL/min (90-130) L 08/29/22 08:50 Glucose 123 mg/dL (65-115) H 08/29/22 08:50 Calculated Osmolality 290 mOsm/kg (285-295) 08/29/22 08:50 Lactic Acid 1.9 mmol/L (0.5-2.2) 08/29/22 08:50 Calcium 9.3 mg/dL (8.5-10.5) 08/29/22 08:50 Total Bilirubin 3.8 mg/dL (0.15-1.2) H 08/29/22 08:50 AST 56 U/L (0-40) H 08/29/22 08:50 ALT 106 U/L (0-41) H 08/29/22 08:50 Alkaline Phosphatase 173 U/L (40-130) H 08/29/22 08:50 Total Protein 7.6 g/dL (6.6-8.7) 08/29/22 08:50 Albumin 4.0 g/dL (3.5-5.2) 08/29/22 08:50 Globulin 3.6 g/dL (1.3-4.6) 08/29/22 08:50 Lipase 60 U/L (13-60) 08/29/22 08:50 Urine Color Springer (Yellow) 08/29/22 10:05 Urine Appearance Clear (CLEAR) 08/29/22 10:05 Urine pH 5 (5-7) 08/29/22 10:05 Ur Specific Melvin 1.020 (1.005-1.030) 08/29/22 10:05 Urine Protein 1+ (Negative) H 08/29/22 10:05 Urine Glucose (UA) Norm (Normal) 08/29/22 10:05 Urine Ketones Negative (Negative) 08/29/22 10:05 Urine Blood Neg (Negative) 08/29/22 10:05 Urine Nitrate Positive (Negative) H 08/29/22 10:05 Urine Bilirubin 2+ (Negative) H 08/29/22 10:05 Urine Urobilinogen 4 mg/dL (Negative) H 08/29/22 10:05 Ur Leukocyte Esterase Trace (Negative) H 08/29/22 10:05 Urine RBC 0-4 /hpf (0-2) H 08/29/22 10:05 Urine WBC 5-10 /hpf (0-5) H 08/29/22 10:05 Ur Squamous Epith Cells 0-4 /hpf (0-5) H 08/29/22 10:05 Amorphous Sediment Not Reportable 08/29/22 10:05 Urine Bacteria 1+ /hpf (NONE) H 08/29/22 10:05 Hyaline Casts 0-4 /lpf H 08/29/22 10:05 Fine Granular Casts 0-4 /lpf H 08/29/22 10:05 Urine Mucus 2+ /hpf 08/29/22 10:05 Discharge Plan Discharge Patient Disposition: Transfer to ED Clinical Impression: Postprocedural leakage from bile duct Condition: Stable Prescriptions: No Action oxycodone-acetaminophen 5-325 mg tablet 1 tab PO Q6H PRN (Reason: pain) Qty: 20 0RF docusate sodium [DOK] 100 mg capsule 100 mg PO BID Qty: 14 0RF Coding Level of Care Code ED Technical Support Representative for Rizwan Jules
[2022-08-29] MEDS: ondansetron 2 mg/ML SDV 2 mL 4 MG IVP ×2 (09:09→14:42)
[2022-08-29] MEDS: morphine 4 mg/mL SDV 1 mL IVP ×2 (09:09→14:42)
[2022-08-29 09:12] LABS: Basophils # 0.1 10^3/uL (0.0-0.1); Basophils % 0.3 %; Eosinophils # 0.1 10^3/uL (0.0-0.8); Eosinophils % 0.2 %; Hematocrit 54.1 % (42.0-52.0); Hemoglobin 17.5 g/dL (11.7-16.6); Lymphocytes # 1.5 10^3/uL (0.8-4.8); Lymphocytes % 5.8 %; Mean Corpuscular HGB Conc 32.3 g/dL (30.0-36.0); Mean Corpuscular Hemoglobin 28.2 pg (28.0-34.0); Mean Corpuscular Volume 87.3 fl (80-94); Mean Platelet Volume 10.9 fL (7.4-10.4); Monocytes % 7.8 %; Neutrophils # 21.46 10^3/uL (1.8-7.7); Neutrophils % 85.2 %; Nucleated Red Blood Cells % 0 %; Platelet Count 516 10^3/cmm (130-400); White Blood Count 25.2 10^3/uL (4.0-10.0)
[2022-08-29] MEDS: metroNIDAZOLE IV 500 MG/100 ML PREMIX 100 MG IV (09:17)
[2022-08-29] MEDS: cefTRIAXone 2,000 MG in sodium chloride 0.9% (plus) 50 ML 100 MG IV (09:19)
[2022-08-29 09:34] LABS: Alanine Aminotransferase 106 U/L (0-41); Alkaline Phosphatase 173 U/L (40-130); Anion Gap 17.5 (5-19); Aspartate Amino Transferase 56 U/L (0-40); Blood Urea Nitrogen 26 mg/dL (6-20); Calcium 9.3 mg/dL (8.5-10.5); Carbon Dioxide 26 mmol/L (22-29); Chloride 97 mmol/L (98-107); Globulin 3.6 g/dL (1.3-4.6); Glomerular Filtration Rate 82.3 mL/min (90-130); Glucose 123 mg/dL (65-115); Lipase 60 U/L (13-60); Osmolality Calculated 290 mOsm/kg (285-295); Potassium 3.5 mmol/L (3.5-5.1); Sodium 137 mmol/L (136-145); Total Bilirubin 3.8 mg/dL (0.15-1.2); Total Protein 7.6 g/dL (6.6-8.7)
[2022-08-29] MEDS: iohexol 350 mg/mL 500 mL Btl (per mL) IV (09:38)
[2022-08-29 09:43] LABS: Lactic Sepsis W/Reflex 1.9 mmol/L (0.5-2.2)
[2022-08-29 10:15] LABS: Urine Color Orange (Yellow)
[2022-08-29 10:16] LABS: Bilirubin Urine 2+ (Negative); Blood Urine Neg (Negative); Glucose Urine UA Norm (Normal); Ketones Urine Negative (Negative); Leukocyte Esterase Urine Trace (Negative); Protein Urine 1+ (Negative); Urine Appearance Clear (CLEAR); Urobilinogen Urine 4 mg/dL (Negative); pH Urine 5 (5-7)
[2022-08-29 10:17] LABS: Add Urine Microscopic? YES; Nitrate Urine Positive (Negative)
[2022-08-29 10:24] LABS: Bacteria Urine 1+ /hpf; Fine Granular Casts Urine 0-4 /lpf; Hyaline Casts Urine 0-4 /lpf; Mucus Urine 2+ /hpf; RBC Urine 0-4 /hpf (0-2); Squamous Epithelial Cell Urine 0-4 /hpf (0-5)
[2022-08-29 10:25] LABS: Add Urine Culture? No
--- NOTE | 2022-08-29 10:44 | NM_ITS ---
WS: [id number] NUCLEAR MEDICINE HIDA SCAN CLINICAL INFORMATION: s/p rivka w bile leak TECHNIQUE: Following intravenous administration of 7.2 mCi of technetium 99m mebrofenin, images of th e abdomen were obtained over the course of 60 minutes. COMPARISON: CT August 29, 2022 FINDINGS: Status post cholecystectomy. Radiotracer is visualized pooling in the gallbladder fossa consistent wi th bile leak. Increasing radiotracer accumulation along the undersurface of the LEFT hepatic lobe cor responding to additional fluid on the CT. NM/NM hepatobiliary wo phar [id number] IMPRESSION: Findings compatible with bile leak in the gallbladder fossa extending along the undersurface of the LEFT hepatic lobe
[2022-08-29] MEDS: sodium chlor 0.9% + KCl 20 mEq 20 MEQ/1,000 ML BAG 125 MEQ IV (16:00)
--- NOTE | 2022-08-30 15:28 | DCPLANNER ---
project management manager called patient due to no primary care physician - no answer at this time.
== END 2022-08-29 16:17 ==
PROVIDERS: Emergency Provider Family Medicine
DX: K91.89 Other postprocedural complications and disorders of digestive system (principal); I10 Essential (primary) hypertension; Y83.6 Removal of other organ (partial) (total) as the cause of abnormal reaction of the patient, or of later complication, without mention of misadventure at the time of the procedure
CPT/HCPCS: 36415; 74177; 78226; 80053; 81001; 83605; 83690; 85025; 87040; 93005; 96365; 96366; 96367; 96375; 96376; 99285; A9537; J0696; J2270; J2405; J3480; J3490; Q9967